=== PATIENT | female | born 1970 | race Caucasian/White ===

== ENCOUNTER 2018-08-06 18:45 | Observation (INO) ==
[2018-08-06] MEDS ORDERED: Sod Chloride 0.9% Inj 1,000 ML IV.SIG ONE (19:55)
--- NOTE | 2018-08-06 20:27 | ED ---
HPI General Chief Complaint: Chest Pain Stated Complaint: back pain Time Seen by Provider: 08/06/18 19:46 Source: patient and family Mode of arrival: ambulatory Limitations: no limitations History of Present Illness HPI narrative: 47-year-old female with history of seizure disorder, HTN, HLD, hypothyroid presents to the emergency department with multiple medical complaints. Patient states she had 2 seizures within the last 2 days. She says the last seizure occurred about 3 PM today. Admits to hitting her head. Says she has been taking her medication Keppra 500 mg twice a day as prescribed. Says she was also taking clonazepam since January as well but has been out of this medication since Thursday. Her friends describes seizures as tonic- clonic lasting several minutes for resolving spontaneously. Admits to biting her tongue. Denies urinary incontinence. She says after the seizure today she developed midsternal chest pain without radiation. Described as aching and mild in severity. She also says the left arm was "numb" after the incident and is now currently limited to her fingertips and describes it as tingling. She was diagnosed with seizure disorder in January in [place] and had a subsequent cardiac arrest where CPR was performed. She was prescribed keppra and clonazepam. Denies history of cardiac problems previously. Also concerned about abdominal pain and states this worsened today since the seizure. She says there is a knot on her lateral abdominal area and was previously diagnosed with a UTI. Says she has 'casts' that cause this pain. Described as sharp, constant, and points to the left flank. Denies fevers, chills, shortness of breath, stiff neck, rash. Related Data Home Medications Medication Instructions Recorded Confirmed aspirin 81 mg PO DAILY 08/06/18 08/06/18 clonazepam See Label Instructions .ROUTE 08/06/18 08/06/18 .COMPLEX PRN levetiracetam [Keppra] 1 tab PO BID 08/06/18 08/06/18 levothyroxine [Synthroid] 100 mcg PO DAILY 08/06/18 08/06/18 losartan 25 mg PO DAILY 08/06/18 08/06/18 metoprolol succinate 25 mg PO DAILY 08/06/18 08/06/18 Allergies Allergy/AdvReac Type Severity Reaction Status Date / Time cucumbers Allergy Difficulty Uncoded 08/06/18 19:32 Breathing pickles Allergy Difficulty Uncoded 08/06/18 19:32 Breathing Review of Systems ROS: all other systems reviewed are negative [facility] History History Provided By: Patient Social History Social History Substance History: No History of Abuse Second Hand Smoke Exposure: Yes Smoking Status: Current every day smoker Tobacco Type: Cigarettes How Often Do You Have a Drink Containing Alcohol: Never Recent Travel in [place] within the Last 8 Weeks: No Recent Out of Country Travel within the Last 8 Weeks: No Exam Narrative Exam Narrative: GENERAL: WD, WN in NAD SKIN: Focused skin assessment warm/dry. HEAD: Atraumatic. Normocephalic. EYES: Pupils equal and round. No scleral icterus. No injection or drainage. ENT: No nasal bleeding or discharge. Mucous membranes pink and moist. No tonsillar hypertrophy or exudate. NECK: Trachea midline. No JVD. No meningismus. CARDIOVASCULAR: Regular rate and rhythm. No murmur appreciated. RESPIRATORY: No accessory muscle use. Clear to auscultation. Breath sounds equal bilaterally. GASTROINTESTINAL: Abdomen soft, non-tender, nondistended. Hepatic and splenic margins not palpable. No CVAT. mild TTP to left lateral lumbar paraspinous muscles. MUSCULOSKELETAL: No obvious deformities. No clubbing. No cyanosis. No edema. No tenderness to palpation of the calves. Sensation intact to bilateral lower extremities. NEUROLOGICAL: Awake and alert. No obvious cranial nerve deficits. Motor grossly within normal limits. Normal speech. PSYCHIATRIC: Appropriate mood and affect; insight and judgment normal. Course Initial Documented Vital Signs Temperature 98.1 F 08/06/18 19:33 Pulse Rate 77 08/06/18 19:33 Respiratory Rate 18 08/06/18 19:33 Blood Pressure 172/84 H 08/06/18 19:33 Pulse Oximetry 100 08/06/18 19:33 Last Documented Vital Signs Temperature 98.6 F 08/07/18 19:50 Pulse Rate 73 08/07/18 19:50 Respiratory Rate 17 08/07/18 19:50 Blood Pressure 142/80 H 08/07/18 19:50 Pulse Oximetry 97 08/07/18 19:50 Clinical Decision Support HEART Score Questions History: Slightly suspicious EKG: Normal Age: 45-64 years Risk Factors: 3 or more Risk Factors or Hx of Atherosclerotic Disease Initial Troponin: Normal Limit Heart Score HEART Score: 3 Medical Decision Making MDM Narrative Medical decision making narrative: 47y female presents to the ED for multiple medical complaints. Her sister accompanies her in the ED today. Her sister is concerned about chest pain she has developed after her seizures today. States compliance with her medications. Ordered labs for evaluation for evaluation of chest pain, seizure disorder. CT head stable. CT abdomen pelvis noncontributory. Pt admits to a history of uterine fibroids. ASA administered. Labs are stable. troponin <0.02, UA noncontributory, UDS positive for cannabinoids, as expected based off of H&P. Ativan administered for anxiety and concern by her sister for development of another seizure. Pt states compliance with her seizure medications. Ordered keppra for level however, unavailable at this time. Pt remains stable and I believe she could follow up as an outpatient regarding further evaluation of her seizures. I believe patient would benefit from a chest pain center admission however based off of family history and H&P today. Medical Screen Exam Complete: Yes Emergency Medical Condition: Yes Medical Records Medical records reviewed: Yes I reviewed the patient's medical records. Reviewed notes that patient brought in from [place]. It appears that the left arm numbness has been present since at least March 2018 and was evaluated at that time as well. A Myocardial perfusion study was performed March 2018 which shows a 'large, mild anterior perfusion defect'. LV 76%. Lab Data Result diagrams: 08/06/18 20:10 08/06/18 20:10 Lab Results 08/06/18 08/06/18 08/06/18 Range/Units 20:10 20:10 20:45 WBC 9.0 (4.0-11.0) th/mm3 RBC 4.11 (4.00-5.30) mil/mm3 Hgb 12.9 (11.6-15.3) gm/dL Hct 38.9 (35.0-46.0) % MCV 94.6 (80.0-100.0) fL MCH 31.3 (27.0-34.0) pg MCHC 33.0 (32.0-36.0) % RDW 12.9 (11.6-17.2) % Plt Count 248 (150-450) th/mm3 MPV 9.9 (7.0-11.0) fL Neut % (Auto) 63.1 (16.0-70.0) % Lymph % (Auto) 30.0 (9.0-44.0) % Rabun % (Auto) 4.7 (0.0-8.0) % Eos % (Auto) 1.1 (0.0-4.0) % Baso % (Auto) 1.1 (0.0-2.0) % Neut # (Auto) 5.7 (1.8-7.7) th/mm3 Lymph # (Auto) 2.7 (1.0-4.8) th/mm3 Rabun # (Auto) 0.4 (0.0-0.9) th/mm3 Eos # (Auto) 0.1 (0.0-0.4) th/mm3 Baso # (Auto) 0.1 (0.0-0.2) th/mm3 WBC Differential . Differential Comment Auto diff final ESR (0-20) mm/hr Sodium 141 (136-145) meq/L Potassium 3.7 (3.5-5.1) meq/L Chloride 109 H (98-107) meq/L Carbon Dioxide 24.4 (21.0-32.0) meq/L Anion Gap 8 (5-15) meq/L BUN 9 (7-18) mg/dL Creatinine 0.71 (0.50-1.00) mg/dL Estimated GFR 87 L (>89) mL/min Random Glucose 90 (74-106) mg/dL Calcium 9.2 (8.5-10.1) mg/dL Magnesium 1.6 (1.5-2.5) mg/dL Total Bilirubin 0.2 (0.2-1.0) mg/dL AST 14 L (15-37) U/L ALT 21 (10-53) U/L Alkaline Phosphatase 54 (45-117) U/L Total Creatine Kinase (26-192) U/L Troponin I Less than 0.02 L (0.02-0.05) ng/mL Total Protein 7.3 (6.4-8.2) g/dL Albumin 3.8 (3.4-5.0) g/dL Vitamin B12 (193-986) pg/mL TSH (0.358-3.740) uIU/mL Free T4 (0.76-1.46) ng/dL Beta HCG, Qual (0-5) mIU/mL Urine Color (Yellw/Straw) Urine Clarity (Clear) Urine pH (5.0-8.5) Ur Specific Wren (1.002-1.035) Urine Protein (Neg-Trace) mg/dL Urine Glucose (UA) (Negative) mg/dL Urine Ketones (Negative) mg/dL Urine Occult Blood (Negative) Urine Nitrate (Negative) Urine Bilirubin (Negative) Urine Urobilinogen (Less than 2) mg/dL Ur Leukocyte Esterase (Negative) Ur Squamous Epith Cells (0-5) /hpf Urine Bacteria (None) /hpf Micro UA Comment Ur Microscopic Review Urine Culture Comments Urine Opiates Screen Neg (Neg) Ur Barbiturates Screen Neg (Neg) Ur Amphetamines Screen Neg (Neg) U Benzodiazepines Scrn Neg (Neg) Urine Cocaine Screen Neg (Neg) U Cannabinoids Screen Pos H (Neg) Rheumatoid Factor Scrn (Negative) Rheumatoid Factor Titer 08/06/18 08/06/18 08/07/18 Range/Units 20:45 23:15 05:30 WBC (4.0-11.0) th/mm3 RBC (4.00-5.30) mil/mm3 Hgb (11.6-15.3) gm/dL Hct (35.0-46.0) % MCV (80.0-100.0) fL MCH (27.0-34.0) pg MCHC (32.0-36.0) % RDW (11.6-17.2) % Plt Count (150-450) th/mm3 MPV (7.0-11.0) fL Neut % (Auto) (16.0-70.0) % Lymph % (Auto) (9.0-44.0) % Rabun % (Auto) (0.0-8.0) % Eos % (Auto) (0.0-4.0) % Baso % (Auto) (0.0-2.0) % Neut # (Auto) (1.8-7.7) th/mm3 Lymph # (Auto) (1.0-4.8) th/mm3 Rabun # (Auto) (0.0-0.9) th/mm3 Eos # (Auto) (0.0-0.4) th/mm3 Baso # (Auto) (0.0-0.2) th/mm3 WBC Differential Differential Comment ESR (0-20) mm/hr Sodium (136-145) meq/L Potassium (3.5-5.1) meq/L Chloride (98-107) meq/L Carbon Dioxide (21.0-32.0) meq/L Anion Gap (5-15) meq/L BUN (7-18) mg/dL Creatinine (0.50-1.00) mg/dL Estimated GFR (>89) mL/min Random Glucose (74-106) mg/dL Calcium (8.5-10.1) mg/dL Magnesium (1.5-2.5) mg/dL Total Bilirubin (0.2-1.0) mg/dL AST (15-37) U/L ALT (10-53) U/L Alkaline Phosphatase (45-117) U/L Total Creatine Kinase 59 52 (26-192) U/L Troponin I Less than 0.02 L Less than 0.02 L (0.02-0.05) ng/mL Total Protein (6.4-8.2) g/dL Albumin (3.4-5.0) g/dL Vitamin B12 (193-986) pg/mL TSH (0.358-3.740) uIU/mL Free T4 (0.76-1.46) ng/dL Beta HCG, Qual 1.6 (0-5) mIU/mL Urine Color Straw (Yellw/Straw) Urine Clarity Clear (Clear) Urine pH 6.0 (5.0-8.5) Ur Specific Wren 1.006 (1.002-1.035) Urine Protein Negative (Neg-Trace) mg/dL Urine Glucose (UA) Negative (Negative) mg/dL Urine Ketones Negative (Negative) mg/dL Urine Occult Blood Negative (Negative) Urine Nitrate Negative (Negative) Urine Bilirubin Negative (Negative) Urine Urobilinogen Less than 2 (Less than 2) mg/dL Ur Leukocyte Esterase Negative (Negative) Ur Squamous Epith Cells 2 (0-5) /hpf Urine Bacteria Rare H (None) /hpf Micro UA Comment Culture not ind Ur Microscopic Review Not Reportable Urine Culture Comments Culture not ind Urine Opiates Screen (Neg) Ur Barbiturates Screen (Neg) Ur Amphetamines Screen (Neg) U Benzodiazepines Scrn (Neg) Urine Cocaine Screen (Neg) U Cannabinoids Screen (Neg) Rheumatoid Factor Scrn (Negative) Rheumatoid Factor Titer 08/07/18 08/07/18 Range/Units 12:50 12:50 WBC (4.0-11.0) th/mm3 RBC (4.00-5.30) mil/mm3 Hgb (11.6-15.3) gm/dL Hct (35.0-46.0) % MCV (80.0-100.0) fL MCH (27.0-34.0) pg MCHC (32.0-36.0) % RDW (11.6-17.2) % Plt Count (150-450) th/mm3 MPV (7.0-11.0) fL Neut % (Auto) (16.0-70.0) % Lymph % (Auto) (9.0-44.0) % Rabun % (Auto) (0.0-8.0) % Eos % (Auto) (0.0-4.0) % Baso % (Auto) (0.0-2.0) % Neut # (Auto) (1.8-7.7) th/mm3 Lymph # (Auto) (1.0-4.8) th/mm3 Rabun # (Auto) (0.0-0.9) th/mm3 Eos # (Auto) (0.0-0.4) th/mm3 Baso # (Auto) (0.0-0.2) th/mm3 WBC Differential Differential Comment ESR 12 (0-20) mm/hr Sodium (136-145) meq/L Potassium (3.5-5.1) meq/L Chloride (98-107) meq/L Carbon Dioxide (21.0-32.0) meq/L Anion Gap (5-15) meq/L BUN (7-18) mg/dL Creatinine (0.50-1.00) mg/dL Estimated GFR (>89) mL/min Random Glucose (74-106) mg/dL Calcium (8.5-10.1) mg/dL Magnesium (1.5-2.5) mg/dL Total Bilirubin (0.2-1.0) mg/dL AST (15-37) U/L ALT (10-53) U/L Alkaline Phosphatase (45-117) U/L Total Creatine Kinase (26-192) U/L Troponin I (0.02-0.05) ng/mL Total Protein (6.4-8.2) g/dL Albumin (3.4-5.0) g/dL Vitamin B12 224 (193-986) pg/mL TSH 0.409 (0.358-3.740) uIU/mL Free T4 1.17 (0.76-1.46) ng/dL Beta HCG, Qual (0-5) mIU/mL Urine Color (Yellw/Straw) Urine Clarity (Clear) Urine pH (5.0-8.5) Ur Specific Wren (1.002-1.035) Urine Protein (Neg-Trace) mg/dL Urine Glucose (UA) (Negative) mg/dL Urine Ketones (Negative) mg/dL Urine Occult Blood (Negative) Urine Nitrate (Negative) Urine Bilirubin (Negative) Urine Urobilinogen (Less than 2) mg/dL Ur Leukocyte Esterase (Negative) Ur Squamous Epith Cells (0-5) /hpf Urine Bacteria (None) /hpf Micro UA Comment Ur Microscopic Review Urine Culture Comments Urine Opiates Screen (Neg) Ur Barbiturates Screen (Neg) Ur Amphetamines Screen (Neg) U Benzodiazepines Scrn (Neg) Urine Cocaine Screen (Neg) U Cannabinoids Screen (Neg) Rheumatoid Factor Scrn Negative (Negative) Rheumatoid Factor Titer Not Reportable Imaging Data Radiologist's impression: Chest X-Ray 08/06/18 20:08 CONCLUSION: 1. No acute cardiopulmonary disease. Head CT 08/06/18 20:08 CONCLUSION: 1. No acute intracranial abnormality. . Abdomen/Pelvis CT 08/06/18 20:12 CONCLUSION: 1. No acute CT abnormality in the abdomen or pelvis. 2. Enlarged leiomyomatous appearing uterus. 3. 5 mm subpleural right lung base nodule. Sub-6 mm nodules do not require routine follow-up in low risk patients per [address] examination may be performed at 12 months if patient is high-risk. Head MRI 08/07/18 12:28 CONCLUSION: 1. Negative MR Brain with and without contrast. Discharge Plan Discharge Disposition Patient Disposition: 30 Still Patient Discharge Condition Condition: Stable Discharge Details Diagnosis: Chest pain, Seizure disorder, Hypertension Physicians Team ED Provider: Bobby Burnette ED Midlevel Provider: Charisse Parra Primary Care Provider: Primary Care Physici,Beatriz Attending Provider: Lacie Reyes Other Providers: Wilber Hendrix ; Otoniel Murry Status ED Status: Left Department Discharge Information Discharge Date/Time: 08/06/18 23:00
[2018-08-06 20:35] LABS: Baso # (Auto) 0.1 th/mm3 (0.0-0.2); Baso % (Auto) 1.1 % (0.0-2.0); Eos # (Auto) 0.1 th/mm3 (0.0-0.4); Eos % (Auto) 1.1 % (0.0-4.0); Hematocrit 38.9 % (35.0-46.0); Hemoglobin 12.9 gm/dL (11.6-15.3); Lymph # (Auto) 2.7 th/mm3 (1.0-4.8); Mean Corpuscular Hemoglobin 31.3 pg (27.0-34.0); Mean Corpuscular Volume 94.6 fL (80.0-100.0); Mean Platelet Volume 9.9 fL (7.0-11.0); Mono # (Auto) 0.4 th/mm3 (0.0-0.9); Mono % (Auto) 4.7 % (0.0-8.0); Neut # (Auto) 5.7 th/mm3 (1.8-7.7); Neut % (Auto) 63.1 % (16.0-70.0); Platelet Count 248 th/mm3 (150-450); Red Blood Count 4.11 mil/mm3 (4.00-5.30); Red Cell Distribution Width 12.9 % (11.6-17.2)
--- NOTE | 2018-08-06 20:50 | XR ---
EXAM DATE: 08/06/2018 8:47 PM EST AGE/SEX: 47 years / Female INDICATIONS: Chest tightness and shortness of breath. CLINICAL DATA: This is the patient's initial encounter. Patient reports that signs and symptoms have been present for 1 day and indicates a pain score of 1/10. MEDICAL/SURGICAL HISTORY: Myocardial infarction. None. COMPARISON: No prior exams available for comparison. FINDINGS: A single AP view of the chest demonstrates the lungs to be symmetrically aerated without evidence of mass, infiltrate or effusion. The cardiomediastinal contours are unremarkable. Osseous structures a re intact. CONCLUSION: 1. No acute cardiopulmonary disease. Electronically signed by: Reginald Uribe MD 08/06/2018 8:49 PM EST
[2018-08-06 20:57] LABS: Albumin 3.8 g/dL (3.4-5.0); Anion Gap 8 meq/L (5-15); Aspartate Aminotransferase 14 U/L (15-37); Blood Urea Nitrogen 9 mg/dL (7-18); Calcium 9.2 mg/dL (8.5-10.1); Carbon Dioxide 24.4 meq/L (21.0-32.0); Chloride 109 meq/L (98-107); Glomerular Filtration Rate 87 mL/min (>89); Glucose,Random 90 mg/dL (74-106); Magnesium 1.6 mg/dL (1.5-2.5); Potassium 3.7 meq/L (3.5-5.1); Sodium 141 meq/L (136-145)
[2018-08-06 20:58] LABS: Alanine Aminotransferase 21 U/L (10-53)
[2018-08-06 21:02] LABS: Alkaline Phosphatase 54 U/L (45-117); Total Protein 7.3 g/dL (6.4-8.2)
--- NOTE | 2018-08-06 21:03 | CT ---
EXAM DATE: 08/06/2018 9:00 PM EST AGE/SEX: 47 years / Female INDICATIONS: Seizure. CLINICAL DATA: This is the patient's initial encounter. Patient reports that signs and symptoms have been present for 1 day and indicates a pain score of 0/10. MEDICAL/SURGICAL HISTORY: Seizures. Hypertension. Hypothyroidism. Cardiac arrest following prior seizure None. RADIATION DOSE: 55.82 CTDI (mGy) COMPARISON: No prior exams available for comparison. TECHNIQUE: CT of the head without contrast. Using automated exposure control and adjustment of the mA and/or kV according to patient size, radiation dose was kept as low as reasonably achievable to ob tain optimal diagnostic quality images. DICOM format image data is available electronically for revi ew and comparison. FINDINGS: Cerebrum: The ventricles are normal for age. No evidence of midline shift, mass lesion, hemorrhage o r acute infarction. No extraaxial fluid collections are seen. Posterior Fossa: The cerebellum and brainstem are intact. The 4th ventricle is midline. The cerebe llopontine angle is unremarkable. Extracranial: The visualized portion of the orbits is intact. Skull: The calvaria is intact. No evidence of skull fracture. CONCLUSION: 1. No acute intracranial abnormality. . Electronically signed by: Reginald Uribe MD 08/06/2018 9:02 PM EST
--- NOTE | 2018-08-06 21:06 | CT ---
EXAM DATE: 08/06/2018 8:59 PM EST AGE/SEX: 47 years / Female INDICATIONS: Left flank pain. CLINICAL DATA: This is the patient's initial encounter. Patient reports that signs and symptoms have been present for 1 day and indicates a pain score of 5/10. MEDICAL/SURGICAL HISTORY: Seizures. Hypertension. Hypothyroidism. Cardiac arrest after prior seizure None. RADIATION DOSE: 11.69 CTDI (mGy) COMPARISON: No prior exams available for comparison. TECHNIQUE: Multiple contiguous axial images were obtained through the abdomen. Images were obtained using multiple row detector helical technique. Using automated exposure control and adjustment of the mA and/or kV according to patient size, radiation dose was kept as low as reasonably achievable to o btain optimal diagnostic quality images. DICOM format image data is available electronically for rev iew and comparison. FINDINGS: LOWER LUNGS: 5 mm subpleural nodule in the right lung base. LIVER: Diffusely homogeneous density without intrahepatic ductal dilatation or volume loss. SPLEEN: Homogeneous density without enlargement. PANCREAS: Grossly unremarkable. KIDNEYS: Kidneys are symmetrical in size without evidence for radiopaque renal calculi or hydronephr osis. No significant contour deforming renal abnormality. ADRENAL GLANDS: Unremarkable. AORTA: Laura-aneurysmal. BOWEL/MESENTERY: The bowel loops are grossly unremarkable. The cecum and sigmoid colon have a salvatore l configuration. No significant free fluid or drainable fluid collections. No free air. Appendix is v isualized and normal in appearance. ABDOMINAL WALL: Intact. BLADDER: Contours are smooth. REPRODUCTIVE: Enlarged leiomyomatous appearing uterus. BONY STRUCTURES: Unremarkable. CONCLUSION: 1. No acute CT abnormality in the abdomen or pelvis. 2. Enlarged leiomyomatous appearing uterus. 3. 5 mm subpleural right lung base nodule. Sub-6 mm nodules do not require routine follow-up in low risk patients per [address] examination may be performed at 12 months if patient is high-risk. Electronically signed by: Reginald Uribe MD 08/06/2018 9:05 PM EST
[2018-08-06 21:08] LABS: Bacteria,Urine Rare /hpf; Bilirubin,Urine Negative (Negative); Clarity,Urine Clear (Clear); Color,Urine Straw (Yellw/Straw); Glucose,Urine (UA) Negative (Negative); Leukocyte Esterase,Urine Negative (Negative); Nitrite,Urine Negative (Negative); Specific Gravity,Urine 1.006 (1.002-1.035); Squamous Epithelial Cell,Urine 2 /hpf (0-5)
[2018-08-06 21:19] LABS: Amphetamine Screen,Urine Neg (Neg); Barbiturate Screen,Urine Neg (Neg); Cannabinoid Screen,Urine Pos (Neg); Cocaine Screen,Urine Neg (Neg)
[2018-08-06 21:29] LABS: Opiate Screen,Urine Neg (Neg)
[2018-08-06] MEDS ORDERED: Gadobutrol PF 10 MMOL/10 ML Vial (for RAD) IV.SIG ONE (21:33)
[2018-08-06 23:51] LABS: Creatine Kinase 59 U/L (26-192)
[2018-08-07] MEDS: Acetaminophen 500 MG Tablet PO PRN ×2 (00:22→09:57)
[2018-08-07] MEDS ORDERED: HYDROmorphone PF Inj 1 MG/ML Ampul IV.PUSH ONE (07:00)
[2018-08-07 07:06] LABS: Creatine Kinase 52 U/L (26-192)
--- NOTE | 2018-08-07 08:38 | P.HPCA ---
History of Present Illness Primary Care Physician: No Primary Care Physician Chief Complaint: Chest pain, seizure, back pain History of Present Illness: This is a 47-year-old female with history of hypertension, seizure disorder, hypothyroidism, and tobacco abuse that presents to ED with complaint of chest pain, left back pain, and seizures. States she started having seizures in [place] in January. States that she was brought in and went into cardiac arrest in the emergency department and needed CPR. She was placed on Keppra and also clonazepam at her discharge. While also at that hospitalization she was told that she needed further cardiac workup. States that she did have a stress test in March but does not know the results. However she did bring the report with her which states adenosine induced ischemia in the anterior wall with an EF of 76%.. States she has been having chest pain quite often since March. States that it is brought on with any kind of stressful situations. Not necessarily exertional stating that she really does nothing to physical as she has a bad knee. States that she began having chest pain yesterday morning. States that she had apparently had a seizure in her sleep. When she woke up from the seizure she had left-sided chest discomfort and numbness/tingling down her left arm. This is the same type of discomfort that she has been having since March. She states that she took her metoprolol that she would normally take in the morning as well as aspirin and the discomfort resolved within about 45 minutes. She was short of breath with her symptoms. States she had a seizure 2 days before as well. States she has been compliant with her seizure medication but also admits to being out of clonazepam for several days. States she has been taking clonazepam essentially every evening for a few months. Also complains of left back pain. She thought that she may be having another urinary tract infection. States that she was treated for UTI while in [place] with antibiotics. Denies fevers or chills. Denies nausea or vomiting. Denies . History of seizure disorder, hypertension, hypothyroidism, tobacco abuse, abnormal stress test in [place]. Denies diabetes, hyperlipidemia, and being diagnosed with coronary artery disease but states that she was to have further evaluation in [place]. She is here visiting family. She thinks that there are family history of CAD but really is not 100% sure. Patient has been smoking 1/2 pack of cigarettes daily for about 5 years. Prior to that she is smoking about 1/3 pack a service for 5 years. Denies alcohol. Denies illicit drug use. - Diagnosis (1) Chest pain (2) Seizure disorder (3) Hypertension (4) Abnormal stress test (5) Tobacco abuse Review of Systems General: Patient denies fevers, chills, and recent travel. HEENT: Patient denies headache, sore throat, difficulty swallowing. Cardiovascular: Has the chest discomfort as mentioned above. Denies sensation of heart beating rapidly or irregularly. No syncope. Denies diaphoresis. Respiratory: She has shortness of breath with her symptoms. Denies inspirational chest discomfort. Denies coughing wheezing or hemoptysis. GI: Patient denies nausea, vomiting, diarrhea, abdominal pain, bloody stools. Musculoskeletal: Patient denies joint pain or edema. Denies calf pain or edema. Complains of left sided back pain. Neurovascular: Complains of seizures and has had one yesterday morning and one the day before that. Denies tongue biting to me but in the ER dictation and mentioned that she had told him that she bit her tongue. She denies fecal or urinary incontinence. Planes of numbness/tingling down her left arm when she has chest pain. Patient denies weakness in extremities. Denies headache. Endocrine: Denies polyuria and polydipsia. Genitourinary: Denies hematuria or dysuria. Denies vaginal discharge. Hematologic: Denies easy bruising. Skin: Denies rash or itching. PMFSH - History History Provided By: Patient - Medical History Medical History: Medical History (Last Reviewed 08/06/18 @ 20:25 by Monserrat Patel) Cardiac arrest Hypertension Hypoglycemia Hypothyroidism Seizure - Surgical History Surgical History: Surgical History (Last Reviewed 08/06/18 @ 20:25 by Monserrat Patel) H/O removal of cyst - Tobacco History Second Hand Smoke Exposure: Yes Tobacco Use In Past 30 Days: Yes Smoking Status: Current every day smoker Tobacco Type: Cigarettes - Alcohol History How Often Do You Have a Drink Containing Alcohol: Never - Substance Use History Substance History: No History of Abuse - Travel History Recent Travel in the [place] Within the Last 8 Weeks: No Recent Travel Out of the Country Within the Last 8 Weeks: No - Immunization History Tetanus Immunization: <5 Years Medications and Allergies Active Medications: Active Medications Acetaminophen (Tylenol) 500 mg PO Q4H PRN PRN Reason: HEADACHE Last Admin: 08/07/18 00:22 Dose: 500 mg Aspirin (Aspirin) 325 mg PO DAILY [facility] Levetiracetam (Keppra) 500 mg PO BID [facility] Levothyroxine Sodium (Synthroid) 100 mcg PO DAILY [facility] Losartan Potassium (Cozaar) 25 mg PO DAILY [facility] Metoprolol Succinate (Toprol Xl) 25 mg PO DAILY [facility] Ondansetron HCl (Zofran Inj) 4 mg IV.PUSH Q6H PRN PRN Reason: NAUSEA Sodium Chloride (Ns Flush) 2 ml IV.FLUSH BID LEANDRA Sodium Chloride (Ns Flush) 2 ml IV.FLUSH PRN PRN PRN Reason: FLUSH AFTER USING IV ACCESS Allergies Allergy/AdvReac Type Severity Reaction Status Date / Time cucumbers Allergy Difficulty Uncoded 08/06/18 19:32 Breathing pickles Allergy Difficulty Uncoded 08/06/18 19:32 Breathing Home Medications Medication Instructions Recorded Confirmed Type aspirin 81 mg PO DAILY 08/06/18 08/06/18 History clonazepam See Label Instructions .ROUTE 08/06/18 08/06/18 History .COMPLEX PRN levetiracetam [Keppra] 1 tab PO BID 08/06/18 08/06/18 History levothyroxine [Synthroid] 100 mcg PO DAILY 08/06/18 08/06/18 History losartan 25 mg PO DAILY 08/06/18 08/06/18 History metoprolol succinate 25 mg PO DAILY 08/06/18 08/06/18 History Exam Vital signs: Vital Signs 08/06/18 19:33 08/06/18 19:55 08/06/18 20:00 Temperature 98.1 F Pulse Rate 77 Respiratory Rate 18 Blood Pressure 172/84 H Pulse Oximetry 100 100 98 08/06/18 22:20 08/06/18 23:13 08/07/18 01:45 Temperature 98.1 F Pulse Rate 70 74 84 Respiratory Rate 16 18 Blood Pressure 146/82 H Pulse Oximetry 100 100 08/07/18 04:00 08/07/18 04:10 Temperature 98.7 F Pulse Rate 77 78 Respiratory Rate 16 Blood Pressure 112/68 Pulse Oximetry 100 Intake & Output 08/06/18 08/07/18 08/07/18 18:59 06:59 18:59 Intake Total 1000 / 1000 Balance 1000 / 1000 Weight 88.451 kg Intake: IV 1000 / 1000 NS Inj 1,000 ML @ Wide Open IV. 1000 / 1000 SIG BOLUS ONE Rx#:[id number] Other: # Voids 0 Narrative: GENERAL: This is a well-nourished, well-developed patient, in no apparent distress. Patient speaks in clear complete sentences. Patient is pleasant. HEENT: Head is atraumatic and normocephalic. Neck is supple without lymphadenopathy and trachea is midline. No JVD or carotid bruits. CARDIOVASCULAR: Regular rate and rhythm without murmurs, gallops, or rubs. RESPIRATORY: Clear to auscultation. Breath sounds equal bilaterally. No wheezes , rales, or rhonchi. Chest wall is nontender. No use of accessory muscles. GASTROINTESTINAL: Abdomen is nontender, nondistended. Abdomen soft. No obvious pulsatile mass or bruit. No specific CVA tenderness. Strong femoral pulses bilaterally. Normal bowel sounds in all quadrants. MUSCULOSKELETAL: Pain on palpating perimuscular region of the left lumbar. No spinous process point tenderness in palpating the cervical, thoracic, or lumbar spine. Patient is moving upper and lower extremities freely. No calf tenderness or edema, no Homans sign. Strong pulses in upper and lower extremities. NEUROLOGICAL: Patient is alert and oriented. Cranial nerves 2-12 are grossly intact. No focal deficits and speech is clear. SKIN: No rash and turgor is normal. Results 08/06/18 20:10 08/06/18 20:10 Cardiac Enzymes 08/06/18 08/06/18 08/07/18 Range/Units 20:10 23:15 05:30 AST 14 L (15-37) U/L Troponin I Less than 0.02 L Less than 0.02 L Less than 0.02 L (0.02-0.05) ng/mL CBC 08/06/18 Range/Units 20:10 WBC 9.0 (4.0-11.0) th/mm3 RBC 4.11 (4.00-5.30) mil/mm3 Hgb 12.9 (11.6-15.3) gm/dL Hct 38.9 (35.0-46.0) % Plt Count 248 (150-450) th/mm3 Neut # (Auto) 5.7 (1.8-7.7) th/mm3 Lymph # (Auto) 2.7 (1.0-4.8) th/mm3 [place] # (Auto) 0.4 (0.0-0.9) th/mm3 Eos # (Auto) 0.1 (0.0-0.4) th/mm3 Baso # (Auto) 0.1 (0.0-0.2) th/mm3 Comprehensive Metabolic Panel 08/06/18 Range/Units 20:10 Sodium 141 (136-145) meq/L Potassium 3.7 (3.5-5.1) meq/L Chloride 109 H (98-107) meq/L Carbon Dioxide 24.4 (21.0-32.0) meq/L BUN 9 (7-18) mg/dL Creatinine 0.71 (0.50-1.00) mg/dL Calcium 9.2 (8.5-10.1) mg/dL AST 14 L (15-37) U/L ALT 21 (10-53) U/L Alkaline Phosphatase 54 (45-117) U/L Total Protein 7.3 (6.4-8.2) g/dL Albumin 3.8 (3.4-5.0) g/dL Intake and Output 08/06/18 08/07/18 08/07/18 22:59 06:59 14:59 Intake Total 1000 / 1000 Balance 1000 / 1000 Intake: IV 1000 / 1000 NS Inj 1,000 ML @ Wide Open IV. 1000 / 1000 SIG BOLUS ONE Rx#:[id number] Other: # Voids 0 Weight 88.451 kg - Imaging and Cardiology Imaging: Impressions Chest X-Ray 08/06/18 20:08 CONCLUSION: 1. No acute cardiopulmonary disease. Head CT 08/06/18 20:08 CONCLUSION: 1. No acute intracranial abnormality. . Abdomen/Pelvis CT 08/06/18 20:12 CONCLUSION: 1. No acute CT abnormality in the abdomen or pelvis. 2. Enlarged leiomyomatous appearing uterus. 3. 5 mm subpleural right lung base nodule. Sub-6 mm nodules do not require routine follow-up in low risk patients per [address] examination may be performed at 12 months if patient is high-risk. EKG interpretations - EKG EKG shows: bradycardia (EKGs are sinus bradycardia with inferior and lateral T wave changes.) Caprini VTE Risk Assessment Caprini VTE Risk Assessment: No/Low Risk (score <= 1) Caprini Risk Assessment Model: Point Value = 1 Point Value = 2 Point Value = 3 Point Value = 5 Age 41-60 Minor surgery BMI > 25 kg/m2 Swollen legs Varicose veins or History of unexplained or recurrent spontaneous Oral contraceptives or hormone replacement Sepsis (< 1 month) Serious lung disease, including pneumonia (< 1 month) Abnormal pulmonary function Acute myocardial infarction Congestive heart failure (< 1 month) History of inflammatory bowel disease Medical patient at bed rest Age 61-74 Arthroscopic surgery Major open surgery (> 45 min) Laparoscopic surgery (> 45 min) Malignancy Confined to bed (> 72 hours) Immobilizing plaster cast Central venous access Age >= 75 History of VTE Family history of VTE Factor V Leiden Prothrombin [id number] Lupus anticoagulant Anticardiolipin antibodies Elevated serum homocysteine Heparin-induced thrombocytopenia Other congenital or acquired thrombophilia Stroke (< 1 month) Elective arthroplasty Hip, pelvis, or leg fracture Acute spinal cord injury (< 1 month) Prophylaxis Regimen: Total Risk Factor Score Risk Level Prophylaxis Regimen 0-1 Low Early ambulation 2 Moderate Order ONE of the following: *Sequential Compression Device (SCD) *Heparin 5000 units SQ BID 3-4 Higher Order ONE of the following medications: *Heparin 5000 units SQ TID *Enoxaparin/Lovenox 40 mg SQ daily (WT < 150 kg, CrCl > 30 mL/min) *Enoxaparin/Lovenox 30 mg SQ daily (WT < 150 kg, CrCl > 10-29 mL/min) *Enoxaparin/Lovenox 30 mg SQ BID (WT < 150 kg, CrCl > 30 mL/min) AND/OR *Sequential Compression Device (SCD) 5 or more Highest Order ONE of the following medications: *Heparin 5000 units SQ TID (Preferred with Epidurals) *Enoxaparin/Lovenox 40 mg SQ daily (WT < 150 kg, CrCl > 30 mL/min) *Enoxaparin/Lovenox 30 mg SQ daily (WT < 150 kg, CrCl > 10-29 mL/min) *Enoxaparin/Lovenox 30 mg SQ BID (WT < 150 kg, CrCl > 30 mL/min) AND *Sequential Compression Device (SCD) Assessment and Plan - Assessment (1) Chest pain Code(s): R07.9 - Chest pain, unspecified Status: Acute (2) Seizure disorder Code(s): G40.909 - Epilepsy, unspecified, not intractable, without status epilepticus Status: Acute (3) Hypertension Code(s): I10 - Essential (primary) hypertension Status: Acute (4) Abnormal stress test Code(s): R94.39 - Abnormal result of other cardiovascular function study Status: Acute (5) Tobacco abuse Code(s): Z72.0 - Tobacco use Status: Acute - Plan * Chest pain: Patient has had serial cardiac enzymes and EKGs. She will be seen by Dr. Laughlin of cardiology and the chest pain center. We reviewed her records and she had an ischemic stress test in March in [place]. At this time she will be admitted to [facility] services with a consult to cardiology for further plan. Beta-hCG is pending. * Seizure disorder: Patient has been compliant with her Keppra but continues to have seizure. She is not sure if this is the result of being out of clonazepam but states she took 1 tablet may be 5 days out of the week and does not think she was taking that much. We will continue her Keppra. * Hypertension: Continue medication. * Abnormal stress test: Patient had an abnormal stress test in [place]. States she was being scheduled to have heart catheterization in [place] but has came to visit and likely states she will be moving here. Will get cardiology consult. * Tobacco abuse: Patient counseled on the importance of smoking cessation. Patient is stable at this time. She is agreeable to this plan. H&P: Quality - VTE Deep Vein Thrombosis/Pulmonary Embolism Present on Admission: No
[2018-08-07] MEDS ORDERED: Aspirin 325 MG Tablet PO SCH (09:00)
[2018-08-07] MEDS ORDERED: levETIRAcetam 500 MG Tablet PO SCH ×2 (09:00→12:27)
[2018-08-07] MEDS ORDERED: Levothyroxine 100 MCG Tablet PO SCH (09:00)
[2018-08-07] MEDS ORDERED: Morphine Sulfate Inj 2 MG/ML Vial IV.PUSH ONE (10:59)
--- NOTE | 2018-08-07 11:04 | P.PNCA ---
Subjective Interval history: Patient was presented by the physician siebel crm developer and then personally seen and examined. After full discussion and decision making was carried out on my part the patient will be admitted to the hospital for further evaluation. In essence she has a history of seizure disorder uncontrolled and of possible ischemic nuclear scan not followed up on. She will currently be admitted for further stabilization and evaluation of her seizure disorder and evaluation of reported nonischemic nuclear scan. Medications and Allergies Active Medications: Active Medications Acetaminophen (Tylenol) 500 mg PO Q4H PRN PRN Reason: HEADACHE Last Admin: 08/07/18 09:57 Dose: 500 mg Aspirin (Aspirin) 325 mg PO DAILY [facility] Last Admin: 08/07/18 09:56 Dose: 325 mg Levetiracetam (Keppra) 500 mg PO BID [facility] Last Admin: 08/07/18 09:56 Dose: 500 mg Levothyroxine Sodium (Synthroid) 100 mcg PO DAILY [facility] Last Admin: 08/07/18 09:56 Dose: 100 mcg Losartan Potassium (Cozaar) 25 mg PO DAILY [facility] Metoprolol Succinate (Toprol Xl) 25 mg PO DAILY [facility] Last Admin: 08/07/18 09:57 Dose: 25 mg Ondansetron HCl (Zofran Inj) 4 mg IV.PUSH Q6H PRN PRN Reason: NAUSEA Sodium Chloride (Ns Flush) 2 ml IV.FLUSH BID [facility] Last Admin: 08/07/18 09:58 Dose: 2 ml Sodium Chloride (Ns Flush) 2 ml IV.FLUSH PRN PRN PRN Reason: FLUSH AFTER USING IV ACCESS Allergies Allergy/AdvReac Type Severity Reaction Status Date / Time cucumbers Allergy Difficulty Uncoded 08/06/18 19:32 Breathing pickles Allergy Difficulty Uncoded 08/06/18 19:32 Breathing Home Medications Medication Instructions Recorded Confirmed Type aspirin 81 mg PO DAILY 08/06/18 08/06/18 History clonazepam See Label Instructions .ROUTE 08/06/18 08/06/18 History .COMPLEX PRN levetiracetam [Keppra] 1 tab PO BID 08/06/18 08/06/18 History levothyroxine [Synthroid] 100 mcg PO DAILY 08/06/18 08/06/18 History losartan 25 mg PO DAILY 08/06/18 08/06/18 History metoprolol succinate 25 mg PO DAILY 08/06/18 08/06/18 History Physical Exam Vital signs: Vital Signs 08/06/18 19:33 08/06/18 19:55 08/06/18 20:00 Temperature 98.1 F Pulse Rate 77 Respiratory Rate 18 Blood Pressure 172/84 H Pulse Oximetry 100 100 98 08/06/18 22:20 08/06/18 23:13 08/07/18 01:45 Temperature 98.1 F Pulse Rate 70 74 84 Respiratory Rate 16 18 Blood Pressure 146/82 H Pulse Oximetry 100 100 08/07/18 04:00 08/07/18 04:10 08/07/18 08:00 Temperature 98.7 F 98.3 F Pulse Rate 77 78 68 Respiratory Rate 16 20 Blood Pressure 112/68 139/88 Pulse Oximetry 100 97 Intake & Output 08/06/18 08/07/18 08/07/18 18:59 06:59 18:59 Intake Total 1000 / 1000 Balance 1000 / 1000 Weight 88.451 kg Intake: IV 1000 / 1000 NS Inj 1,000 ML @ Wide Open IV. 1000 / 1000 SIG BOLUS ONE Rx#:[id number] Other: # Voids 0 Narrative: Patient sitting up in bed with no apparent Current discomfort although she complains of ongoing chest Head normocephalic atraumatic Eyes PERRLA EOMI sclera clear Neck supple no JVD masses nodes or bruits Chest diminished breath sounds but clear to auscultation with no rales wheezes or rhonchi. She is exquisitely tender to palpation over the lower sternal and left chest area Cardiovascular regular sinus rhythm no gallops rubs or murmurs Abdomen soft nontender no guarding no rebound Extremities no clubbing cyanosis or edema Results 08/06/18 20:10 08/06/18 20:10 Cardiac Enzymes 08/06/18 08/06/18 08/07/18 Range/Units 20:10 23:15 05:30 AST 14 L (15-37) U/L Troponin I Less than 0.02 L Less than 0.02 L Less than 0.02 L (0.02-0.05) ng/mL CBC 08/06/18 Range/Units 20:10 WBC 9.0 (4.0-11.0) th/mm3 RBC 4.11 (4.00-5.30) mil/mm3 Hgb 12.9 (11.6-15.3) gm/dL Hct 38.9 (35.0-46.0) % Plt Count 248 (150-450) th/mm3 Neut # (Auto) 5.7 (1.8-7.7) th/mm3 Lymph # (Auto) 2.7 (1.0-4.8) th/mm3 [place] # (Auto) 0.4 (0.0-0.9) th/mm3 Eos # (Auto) 0.1 (0.0-0.4) th/mm3 Baso # (Auto) 0.1 (0.0-0.2) th/mm3 Comprehensive Metabolic Panel 08/06/18 Range/Units 20:10 Sodium 141 (136-145) meq/L Potassium 3.7 (3.5-5.1) meq/L Chloride 109 H (98-107) meq/L Carbon Dioxide 24.4 (21.0-32.0) meq/L BUN 9 (7-18) mg/dL Creatinine 0.71 (0.50-1.00) mg/dL Calcium 9.2 (8.5-10.1) mg/dL AST 14 L (15-37) U/L ALT 21 (10-53) U/L Alkaline Phosphatase 54 (45-117) U/L Total Protein 7.3 (6.4-8.2) g/dL Albumin 3.8 (3.4-5.0) g/dL Intake and Output 08/06/18 08/07/18 08/07/18 22:59 06:59 14:59 Intake Total 1000 / 1000 Balance 1000 / 1000 Intake: IV 1000 / 1000 NS Inj 1,000 ML @ Wide Open IV. 1000 / 1000 SIG BOLUS ONE Rx#:[id number] Other: # Voids 0 Weight 88.451 kg - Imaging and Cardiology Imaging: Impressions Chest X-Ray 08/06/18 20:08 CONCLUSION: 1. No acute cardiopulmonary disease. Head CT 08/06/18 20:08 CONCLUSION: 1. No acute intracranial abnormality. . Abdomen/Pelvis CT 08/06/18 20:12 CONCLUSION: 1. No acute CT abnormality in the abdomen or pelvis. 2. Enlarged leiomyomatous appearing uterus. 3. 5 mm subpleural right lung base nodule. Sub-6 mm nodules do not require routine follow-up in low risk patients per [address] examination may be performed at 12 months if patient is high-risk. Assessment and Plan - Assessment (1) Chest pain Code(s): R07.9 - Chest pain, unspecified Status: Acute Plan: Patient has reported nuclear scan from [place] showing ischemia. This is never been evaluated. Further testing at this time will be deferred until she can be appropriately admitted and evaluated. She will be admitted for recurrent seizures that are not currently well controlled. Once her neurologic status has been evaluated and stabilized further evaluation either with a repeat nuclear scan or with a catheterization will probably be strongly entertained by drywall finisher. (2) Seizure disorder Code(s): G40.909 - Epilepsy, unspecified, not intractable, without status epilepticus Status: Acute (3) Hypertension Code(s): I10 - Essential (primary) hypertension Status: Acute (4) Abnormal stress test Code(s): R94.39 - Abnormal result of other cardiovascular function study Status: Acute (5) Tobacco abuse Code(s): Z72.0 - Tobacco use Status: Acute - Plan * Chest pain: Patient has had serial cardiac enzymes and EKGs. She will be seen by Dr. Laughlin of cardiology and the chest pain center. We reviewed her records and she had an ischemic stress test in March in [place]. At this time she will be admitted to [facility] services with a consult to cardiology for further plan. Beta-hCG is pending. * Seizure disorder: Patient has been compliant with her Keppra but continues to have seizure. She is not sure if this is the result of being out of clonazepam but states she took 1 tablet may be 5 days out of the week and does not think she was taking that much. We will continue her Keppra. * Hypertension: Continue medication. * Abnormal stress test: Patient had an abnormal stress test in [place]. States she was being scheduled to have heart catheterization in [place] but has came to visit and likely states she will be moving here. Will get cardiology consult. * Tobacco abuse: Patient counseled on the importance of smoking cessation. Patient is stable at this time. She is agreeable to this plan.
--- NOTE | 2018-08-07 11:11 | ECG ---
Date Performed: 08/06/2018 Time Performed: 23:18:56 PTAGE: 47 years EKG: SINUS BRADYCARDIA NONSPECIFIC T-WAVE ABNORMALITY BORDERLINE ECG No significant change PREVIOUS TRACING : 08/06/2018 20.00 DOCTOR: Ghassan Laughlin Interpretating Date/Time 08/07/2018 11:10:12
--- NOTE | 2018-08-07 11:13 | ECG ---
Date Performed: 08/06/2018 Time Performed: 20:00:35 PTAGE: 47 years EKG: SINUS BRADYCARDIA NONSPECIFIC T-WAVE ABNORMALITY BORDERLINE ECG NO PREVIOUS TRACING DOCTOR: Ghassan Laughlin Interpretating Date/Time 08/07/2018 11:11:35
[2018-08-07] MEDS ORDERED: clonazePAM 1 MG Tablet PO SCH (12:30)
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
[2018-08-07 14:11] LABS: Free T4 (Free Thyroxine) 1.17 ng/dL (0.76-1.46); Thyroid Stimulating Hormone 0.409 uIU/mL (0.358-3.740); Vitamin B12 224 pg/mL (193-986)
--- NOTE | 2018-08-07 16:24 | MB ---
cc: Wilber Hendrix MD DATE: 08/07/2018 HISTORY OF PRESENT ILLNESS: Catia is a very pleasant 47-year-old lady who smokes, who apparently had some sort of a cardiac arrest in [place] about 6 months ago. She said she had a nuclear stress test, but did not have a heart catheterization. She has also been diagnosed with an epileptic seizure disorder. She started having some bilateral flank pain yesterday and then had a loss of consciousness and then developed moderate chest pain after that. Currently, she is sitting up in bed, in no acute distress. Denies fever, chills, cough, GI or bleeding, PND, orthopnea or dizziness. PAST MEDICAL HISTORY: Includes cardiac arrest, hypertension, hypoglycemia, hypothyroidism, seizure disorder, removal of a cyst. ALLERGIES: CUCUMBERS AND PICKLES. SOCIAL HISTORY: She does smoke. Denies alcohol use. MEDICATIONS IN THE HOSPITAL: 1. Aspirin 325 mg daily. 2. Keppra 1000 mg b.i.d. 3. Klonopin 1 mg x1. 4. Levothyroxine 100 mcg daily. 5. Losartan 25 mg daily. 6. Metoprolol XL 25 mg daily. PHYSICAL EXAMINATION: VITAL SIGNS: Temperature 98.9, pulse 58, respiratory rate 16, blood pressure 149/88, sats 97% on room air. GENERAL: She is alert and oriented x3, in no acute distress. NECK: Supple. No JVD. No bruit. CARDIOVASCULAR: S1, S2. No murmurs, rubs or gallops. LUNGS: Clear to auscultation bilaterally. ABDOMEN: Soft, nontender, nondistended with positive bowel sounds. EXTREMITIES: No lower extremity edema. DIAGNOSTIC DATA: EKG: Sinus bradycardia at 58 beats per minute, nonspecific ST-T wave changes. Repeat EKG: Sinus bradycardia at 59 beats per minute, otherwise normal. Chest x-ray: No acute cardiopulmonary disease. Head CT: The ventricles are normal for age. No evidence of midline shift, mass lesion, hemorrhage or acute infarction. No extra-axial fluid collections are seen. Abdominal pelvic CT: No acute CT abnormality in the abdomen or pelvis, large leiomyoma cyst-appearing uterus, 5 mm subpleural right lung base nodule, sub-6 mm nodules do not require routine followup in low risk patients per [address] examination may be performed at 12 months if the patient is high risk. LABORATORY DATA: White count 9.0, hemoglobin 12.9, hematocrit 38.9, platelet count 248. Sodium 141, potassium 3.7, chloride 109, bicarbonate 24.4, BUN 9, creatinine 0.71. Troponin less than 0.02 x3. Beta hCG is 1.6. Toxicology is positive for cannabinoids. DIAGNOSES: 1. Unstable angina. 2. Seizure disorder. 3. Tobacco abuse. 4. Cannabis use. 5. Positive myocardial perfusion study. 6. Hypertension. DISCUSSION: The patient has new onset [id number]-[id number]-[id number] chest pain at rest with multiple cardiac risk factors. I strongly advised her to start smoking. I agree with aspirin and metoprolol. We will also add nitro paste and Norvasc to get her blood pressure better controlled. We will get a neurology consult. If she is cleared for her catheterization, we will schedule catheterization on 08/09/2018. MD TOBY Cedeno/yayo/ciara , 01:46 PM , 01:55 PM
--- NOTE | 2018-08-07 17:07 | MR ---
EXAM DATE: 08/07/2018 5:00 PM EST AGE/SEX: 47 years / Female INDICATIONS: Seizures. CLINICAL DATA: This is the patient's initial encounter. Patient reports that signs and symptoms have been present for 1 day and indicates a pain score of 0/10. MEDICAL/SURGICAL HISTORY: Seizures. None. COMPARISON: [facility] [place]AST, 08/06/2018. . TECHNIQUE: Multiplanar, multisequence examination of the brain was performed without and with 9 ml Ga davist (gadobutrol) contrast as a single exam dose. FINDINGS: Cerebrum: The ventricles are normal for age. No evidence of midline shift, mass lesion, hemorrhage or acute infarction. No extraaxial fluid collections are seen. The pituitary gland and suprasellar cistern are normal in configuration. Hippocampi are symmetric. White Matter: No significant signal abnormalities are seen in the white matter. Posterior Fossa: The cerebellum and brainstem are intact. The 4th ventricle is midline. The cerebel lopontine angle is unremarkable. The cerebellar tonsils are normal in position. Diffusion Imaging: No focal areas of restricted diffusion are seen. No evidence of acute infarction . Extracranial: The visualized portions of the orbits and paranasal sinuses are unremarkable. Post Contrast: No abnormal areas of parenchymal or dural enhancement. No evidence of blood-brain ba rrier breakdown. CONCLUSION: 1. Negative MR Brain with and without contrast. Electronically signed by: Reginald Uribe MD 08/07/2018 5:06 PM EST
[2018-08-07] MEDS ORDERED: Gadobutrol PF 10 MMOL/10 ML Vial (for RAD) IV.SIG ONE (17:08)
[2018-08-07 19:52] VITALS: BP 142/80; PULSE 73; RESP 17; TEMP 98.6; O2SAT 97
[2018-08-07] MEDS ORDERED: Ibuprofen 400 MG Tablet PO ONE (20:04)
[2018-08-07] MEDS ORDERED: Orphenadrine Inj 60 MG/2 ML Ampul IM ONE (21:22)
[2018-08-07] MEDS ORDERED: Ketorolac Inj 30 MG/ML (IVP) Vial IV.PUSH ONE (21:23)
--- NOTE | 2018-08-07 21:46 | P.PNADD ---
Addendum to Inpatient Note Reason for Addendum: Additional Documentation Additional information: I was just notified by nursing that the patient left the facility AMA. She had been complaining that we were not managing her pain adequately earlier in the evening. She said she had been complaining to multiple providers and staff members and no one was addressing her pain problem. She requested Toradol and Norflex for left sided muscle pain - she had received this previously in [place] for the same symptom and her pain was relieved. I placed orders for a one- time dose. She left before ever receiving the medication.
[2018-08-08] MEDS ORDERED: amLODIPine 5 MG Tablet PO SCH (09:00)
--- NOTE | 2018-08-08 11:09 | MG ---
cc: Otoniel Baird MD EEG NUMBER: [id number] CLINICAL HISTORY: Seizures, nocturnal seizures. MEDICATIONS: 1. Aspirin. 2. Dilaudid. 3. Keppra. 4. Morphine. DESCRIPTION: Recording shows diffuse alpha and beta rhythms. Photic stimulation is performed without any posterior driving. Muscle artifact is seen at 10 Hz, 40 microvolts symmetric posterior rhythm is noted. Hyperventilation is not performed. It appears that she probably falls asleep, but did not reach stage II sleep. IMPRESSION: A normal awake and sleep electroencephalogram. No evidence for a focal or diffuse abnormality. MD CINDY Perez/ahmet , 10:07 AM , 10:11 AM
[2018-08-09 11:19] LABS: Anti-Nuclear Antibody Screen Neg (Neg)
== END 2018-08-07 21:41 | disposition left against medical advice (07) ==
LOC: NEPD 18:45 → NEDA 18:45 → NEPHCDU 22:52
PROVIDERS: ADMIT Hospitalist; ATTEND Hospitalist

== ENCOUNTER 2018-08-08 11:18 | Inpatient (IN) ==
--- NOTE | 2018-08-08 11:32 | ED ---
HPI General Chief Complaint: Chest Pain Stated Complaint: Chest pain Time Seen by Provider: 08/08/18 11:26 Source: patient Mode of arrival: ambulatory Limitations: no limitations History of Present Illness HPI narrative: 47 y/o female notes return of chest pain after leaving against advice from the hospital. She states when she left she had nitroglycerin paste still on so she was doing okay. The pain recurred and she took nitroglycerin tablets and it went away but when it came back she elected to come here. She states she left against advice before because she was having issues with her nursing care that was provided. She states she is willing to stay now but does not want the same nurse. She denies any other concurrent complaints. Quality is pressure. Severity is moderate. She states her abnormal stress test in March was in [place] but she could not afford at the time to get a heart catheterization. She had family help her get up here. Related Data Home Medications Medication Instructions Recorded Confirmed aspirin 81 mg PO DAILY 08/06/18 08/08/18 clonazepam See Label Instructions .ROUTE 08/06/18 08/08/18 .COMPLEX PRN levetiracetam [Keppra] 1 tab PO BID 08/06/18 08/08/18 levothyroxine [Synthroid] 100 mcg PO DAILY 08/06/18 08/08/18 losartan 25 mg PO DAILY 08/06/18 08/08/18 metoprolol succinate 25 mg PO DAILY 08/06/18 08/08/18 Allergies Allergy/AdvReac Type Severity Reaction Status Date / Time cucumbers Allergy Difficulty Uncoded 08/06/18 19:32 Breathing pickles Allergy Difficulty Uncoded 08/06/18 19:32 Breathing Review of Systems ROS: all other systems reviewed are negative [facility] Medical History Medical History Cardiac arrest (Acute) Hypertension (Acute) Hypoglycemia (Acute) Hypothyroidism (Acute) Seizure (Acute) Surgical History Surgical History H/O removal of cyst (Acute) Social History Social History Substance History: No History of Abuse Second Hand Smoke Exposure: Yes Smoking Status: Never smoker Tobacco Type: Cigarettes How Often Do You Have a Drink Containing Alcohol: Unable to Obtain Recent Travel in [facility] within the Last 8 Weeks: No Recent Out of Country Travel within the Last 8 Weeks: No Exam Narrative Exam Narrative: GENERAL: 47 y/o female in no apparent distress SKIN: Focused skin assessment warm/dry. HEAD: Atraumatic. Normocephalic. EYES: Pupils equal and round. No scleral icterus. No injection or drainage. ENT: No nasal bleeding or discharge. Mucous membranes pink and moist. NECK: Trachea midline. No JVD. CARDIOVASCULAR: Regular rate and rhythm. RESPIRATORY: No accessory muscle use. Clear to auscultation. Breath sounds equal bilaterally. GASTROINTESTINAL: Abdomen soft, non-tender, nondistended. MUSCULOSKELETAL: No obvious deformities. No clubbing. No cyanosis. No edema. NEUROLOGICAL: Awake and alert. Motor grossly within normal limits. Normal speech. PSYCHIATRIC: Appropriate mood and affect; insight and judgment normal. Course Reevaluation(s) Reevaluation #1: ED workup without emergent process. Will readmit Consultations Consultation #1: resident team agrees to admit Initial Documented Vital Signs Temperature 98.3 F 08/08/18 11:20 Pulse Rate 103 H 08/08/18 11:20 Respiratory Rate 16 08/08/18 11:20 Blood Pressure 157/93 H 08/08/18 11:20 Pulse Oximetry 99 08/08/18 11:20 Last Documented Vital Signs Temperature 98.3 F 08/08/18 11:20 Pulse Rate 75 08/08/18 12:43 Respiratory Rate 20 08/08/18 12:43 Blood Pressure 123/73 08/08/18 12:43 Pulse Oximetry 99 08/08/18 12:43 Medical Decision Making [facility] Narrative Medical decision making narrative: We will check blood work, EKG, chest x-ray and readmit Medical Screen Exam Complete: Yes Emergency Medical Condition: Yes Differential Diagnosis Differential Diagnosis: VT, gastritis, musculoskeletal Medical Records Patient here and recently signed out AMA have cardiac catheter after neurology clearance Lab Data Lab results reviewed: Yes I reviewed the patient's lab results. Result diagrams: 08/08/18 11:45 08/08/18 11:45 Lab Results 08/08/18 08/08/18 08/08/18 Range/Units 11:45 11:45 11:45 WBC 7.0 (4.0-11.0) th/mm3 RBC 3.86 L (4.00-5.30) mil/mm3 Hgb 12.3 (11.6-15.3) gm/dL Hct 36.8 (35.0-46.0) % MCV 95.2 (80.0-100.0) fL MCH 31.7 (27.0-34.0) pg MCHC 33.3 (32.0-36.0) % RDW 12.9 (11.6-17.2) % Plt Count 212 (150-450) th/mm3 MPV 9.6 (7.0-11.0) fL Neut % (Auto) 63.7 (16.0-70.0) % Lymph % (Auto) 30.6 (9.0-44.0) % [place] % (Auto) 4.9 (0.0-8.0) % Eos % (Auto) 0.4 (0.0-4.0) % Baso % (Auto) 0.4 (0.0-2.0) % Neut # (Auto) 4.4 (1.8-7.7) th/mm3 Lymph # (Auto) 2.1 (1.0-4.8) th/mm3 [place] # (Auto) 0.3 (0.0-0.9) th/mm3 Eos # (Auto) 0.0 (0.0-0.4) th/mm3 Baso # (Auto) 0.0 (0.0-0.2) th/mm3 WBC Differential . Differential Comment Auto diff final PT 10.6 (9.8-11.6) sec INR 1.0 Ratio APTT 26.2 (23.4-31.7) sec Sodium 142 (136-145) meq/L Potassium 3.5 (3.5-5.1) meq/L Chloride 111 H (98-107) meq/L Carbon Dioxide 25.7 (21.0-32.0) meq/L Anion Gap 5 (5-15) meq/L BUN 7 (7-18) mg/dL Creatinine 0.65 (0.50-1.00) mg/dL Estimated GFR Greater than 89 (>89) mL/min Random Glucose 92 (74-106) mg/dL Calcium 8.6 (8.5-10.1) mg/dL Magnesium 1.6 (1.5-2.5) mg/dL Total Bilirubin 0.5 (0.2-1.0) mg/dL AST 10 L (15-37) U/L ALT 14 (10-53) U/L Alkaline Phosphatase 47 (45-117) U/L Total Creatine Kinase 48 (26-192) U/L Troponin I Less than 0.02 L (0.02-0.05) ng/mL Total Protein 6.5 D (6.4-8.2) g/dL Albumin 3.3 L (3.4-5.0) g/dL Imaging Data Attestation: I personally reviewed and interpreted this imaging study as follows : Radiologist's impression: Chest X-Ray 08/08/18 11:28 CONCLUSION: No acute cardiopulmonary process. Discharge Plan Discharge Disposition Patient Disposition: 30 Still Patient Discharge Details Diagnosis: Chest pain Physicians Team ED Provider: Caity Man Primary Care Provider: Primary Care Beatriz Blanco Rxs /Orders / Referrals /Forms Prescriptions: No Action levetiracetam [Keppra] 500 mg Tablet 1 tab PO BID RF: 0 aspirin 81 mg Tablet,Delayed Release (Dr/Ec) 81 mg PO DAILY RF: 0 levothyroxine [Synthroid] 100 mcg Tablet 100 mcg PO DAILY RF: 0 losartan 25 mg Tablet 25 mg PO DAILY RF: 0 metoprolol succinate 25 mg Tablet Extended Release 24 Hr 25 mg PO DAILY RF: 0 clonazepam See Label Instructions .ROUTE .COMPLEX PRN (Reason: Insomnia) RF: 0 Discharge Instructions Patient Printed Instructions: Chest Pain (ED) Discharge Interventions Interventions: Vital Signs Last Done: 08/08/18 11:20 Status ED Status: Admitted Observation Patient
--- NOTE | 2018-08-08 11:53 | XR ---
EXAM DATE: 08/08/2018 11:49 AM EST AGE/SEX: 47 years / Female INDICATIONS: Chest pain CLINICAL DATA: This is the patient's initial encounter. Patient reports that signs and symptoms have been present for 1 day and indicates a pain score of 4/10. MEDICAL/SURGICAL HISTORY: None. None. COMPARISON: [facility] – [place], CHEST 1V SINGLE AP, 08/06/2018. . FINDINGS: A single AP view of the chest demonstrates the lungs to be symmetrically aerated without evidence of mass, infiltrate or effusion. The cardiomediastinal contours are unremarkable. Osseous structures a re intact. CONCLUSION: No acute cardiopulmonary process. Electronically signed by: Gerardo Escoto MD 08/08/2018 11:52 AM EST
[2018-08-08 12:10] LABS: Baso % (Auto) 0.4 % (0.0-2.0); Eos % (Auto) 0.4 % (0.0-4.0); Hematocrit 36.8 % (35.0-46.0); Hemoglobin 12.3 gm/dL (11.6-15.3); Lymph # (Auto) 2.1 th/mm3 (1.0-4.8); Lymph % (Auto) 30.6 % (9.0-44.0); Mean Corpuscular HGB Conc 33.3 % (32.0-36.0); Mean Corpuscular Hemoglobin 31.7 pg (27.0-34.0); Mean Corpuscular Volume 95.2 fL (80.0-100.0); Mean Platelet Volume 9.6 fL (7.0-11.0); Mono # (Auto) 0.3 th/mm3 (0.0-0.9); Mono % (Auto) 4.9 % (0.0-8.0); Neut # (Auto) 4.4 th/mm3 (1.8-7.7); Neut % (Auto) 63.7 % (16.0-70.0); Platelet Count 212 th/mm3 (150-450); Red Blood Count 3.86 mil/mm3 (4.00-5.30); Red Cell Distribution Width 12.9 % (11.6-17.2)
[2018-08-08 12:20] LABS: Activated Partial Thrombo Time 26.2 sec (23.4-31.7); Prothrombin Time 10.6 sec (9.8-11.6)
[2018-08-08 12:36] LABS: Alanine Aminotransferase 14 U/L (10-53); Albumin 3.3 g/dL (3.4-5.0); Anion Gap 5 meq/L (5-15); Aspartate Aminotransferase 10 U/L (15-37); Blood Urea Nitrogen 7 mg/dL (7-18); Calcium 8.6 mg/dL (8.5-10.1); Carbon Dioxide 25.7 meq/L (21.0-32.0); Chloride 111 meq/L (98-107); Glomerular Filtration Rate Greater Than 89 mL/min (>89); Glucose,Random 92 mg/dL (74-106); Magnesium 1.6 mg/dL (1.5-2.5); Potassium 3.5 meq/L (3.5-5.1); Sodium 142 meq/L (136-145)
[2018-08-08 12:40] LABS: Alkaline Phosphatase 47 U/L (45-117); Creatine Kinase 48 U/L (26-192); Total Protein 6.5 g/dL (6.4-8.2)
--- NOTE | 2018-08-08 13:28 | P.HPFP ---
History of Present Illness Primary Care Physician: No Primary Care Physician <RobinishmaelCristobal Valerio - 08/08/18 20:46> No Primary Care Physician <Luli Roberto - 08/08/18 13:28> History of Present Illness: HPI: 47 year old female presents with chest pain. Initially the chest pain started on Thursday in the morning. She had a seizure that morning (unwitnessed). She has an aura before it happens ( seeing halos). She then woke up and had chest pain located on her sternum, felt like something heavy was sitting on her chest. She had associated left arm numbness and Left jaw pain (lock jaw). The pain lasted for 45 minutes, she got up and took her metoprolol, Keppra and aspirin and then the pain went away. Throughout the day on Thursday, every time she tried to do activates such as vacuuming the pain would return, so she rested on Thursday. Her sister came in Thursday afternoon and she said she looked pale and then took her to the emergency department for the chest pain and back pain. Was evaluated on Thursday in the ED ,had a seizure in the emergency waiting room ( she believes it lasted for 15 minutes). Admitted for ACS workup. Left AMA Thursday because there was nothing on the chart to help with her chest pain and no food available. They gave her a nitroglycerin patch + lorazepam and the chest pain had subsided so she left AMA. When she woke up this morning she continued to feel the CP, same area, same radiation. Rate the pain 6/10. Non pleuritic. No recent trauma to the area. Since her seizure diagnosis she has had one seizure in [place] and four seizures since she came to [facility] on August 02. Has been taking her seizure medications daily. The only two things that she has done differently was : did not take her clonazepam (usually take it 5 times a week). She also consumed alcohol (a glass a wine) during her trip and she doesn't drink before. Not sleep deprived. Stressed that her daughter and are still in [place]. Denies any fever, Shortness of breath, No coughing, No abdominal pain. No pain with urination. Increase in Urinary frequency. She also complains of Left sided flank pain that started on the and increased on the . It radiates to her waist downward. 9/10 in severity. Morphine given by the rope maker in [place] helped. Motrin and Flexeril helped. Keeping well hydrated. Abnormal Vaginal Discharge: white and creamy that started yesterday. PMH: Seizures (1st time in January,went into Cardiac Arrest and had to be resuscitated), Kidney Infection, abnormal stress test in [place] in March. HBP. Anxiety. Uterine Fibroid. Hypoglycemia, Hypothyroidism. PSH: R elbow cyst removal as a kid. MEDs: Keppra, Metoprolol, Lopressor, Nitroglycerin. Clonazepam. Flexeril. PFH: HBP in family. Mom had diabetes. Fibroids. Dad of Liver cancer. SH: Lives in [place]. No other travel. Smokes 1/2 ppd for 5 years. Denies any alcohol use or drug use. Sexually active with . No history of STDs. Menstrual cycles regular. Abnormal vaginal discharge. Pain with sexual intercourse, some vaginal bleeding afterwards. ROS: Noted in HPI. <Luli Roberto - 08/08/18 19:01> - Diagnosis (1) Chest pain (2) Seizure disorder (3) Vaginal discharge (4) Left flank pain (5) Marijuana abuse (6) Hypertension (7) Abnormal stress test (8) Tobacco abuse (9) Tinea versicolor (10) DVT prophylaxis (11) Nutrition, metabolism, and development symptoms <Cristobal lFores - 08/08/18 20:46> (1) Chest pain (2) Seizure disorder (3) Vaginal discharge (4) Left flank pain (5) Marijuana abuse (6) Hypertension (7) Abnormal stress test (8) Tobacco abuse (9) Tinea versicolor (10) DVT prophylaxis (11) Nutrition, metabolism, and development symptoms <Luli Roberto - 08/08/18 19:04> Inpatient Certification: I certify that the inpatient services were ordered in accordance with Medicare regulations governing the order. This includes certification that hospital inpatient services are reasonable and necessary and in the case of services not specified as inpatient-only under 42 CFR 419.22(n), that they are appropriately provided as inpatient services in accordance to with the 2-midnight benchmark under 43 CFR 412.3(e) <Cristobal Flores - 08/08/18 20:46> [facility] - History History Provided By: Patient <Luli Roberto - 08/08/18 13:28> - Medical History Medical History: Medical History (Last Reviewed 08/08/18 @ 11:31 by Caity Man MD) Cardiac arrest Hypertension Hypoglycemia Hypothyroidism Seizure <Cristobal Flores - 08/08/18 20:46> Medical History (Last Reviewed 08/08/18 @ 11:31 by Caity Man MD) Cardiac arrest Hypertension Hypoglycemia Hypothyroidism Seizure <Luli Roberto - 08/08/18 13:28> - Surgical History Surgical History: Surgical History (Last Reviewed 08/08/18 @ 11:31 by Caity Man MD) H/O removal of cyst <Cristobal Flores - 08/08/18 20:46> Surgical History (Last Reviewed 08/08/18 @ 11:31 by Caity Man MD) H/O removal of cyst <NicolasasaulzullyLuli - 08/08/18 13:28> - Tobacco History Second Hand Smoke Exposure: Yes <Luli Roberto - 08/08/18 13:28> Smoking Status: Never smoker <Luli Roberto - 08/08/18 13:28> Tobacco Type: Cigarettes <Luli Roberto - 08/08/18 13:28> - Alcohol History How Often Do You Have a Drink Containing Alcohol: Unable to Obtain <Luli Roberto - 08/08/18 13:28> - Substance Use History Substance History: No History of Abuse <PardeepLuli - 08/08/18 13:28> - Travel History Recent Travel in the [facility] Within the Last 8 Weeks: No <PardeepLuli - 13:28> Recent Travel Out of the Country Within the Last 8 Weeks: No <PardeepLuli - 08/08/18 13:28> - Immunization History Tetanus Immunization: Unsure <PardeepLuli - 08/08/18 13:28> Medications and Allergies Allergies Allergy/AdvReac Type Severity Reaction Status Date / Time cucumbers Allergy Difficulty Uncoded 08/06/18 19:32 Breathing pickles Allergy Difficulty Uncoded 08/06/18 19:32 Breathing <Cristobal Flores K - 08/08/18 20:46> Home Medications Medication Instructions Recorded Confirmed Type aspirin 81 mg PO DAILY 08/06/18 08/08/18 History clonazepam See Label Instructions .ROUTE 08/06/18 08/08/18 History .COMPLEX PRN levetiracetam [Keppra] 1 tab PO BID 08/06/18 08/08/18 History levothyroxine [Synthroid] 100 mcg PO DAILY 08/06/18 08/08/18 History losartan 25 mg PO DAILY 08/06/18 08/08/18 History metoprolol succinate 25 mg PO DAILY 08/06/18 08/08/18 History <Cristobal Flores - 08/08/18 20:46> Active Medications: Active Medications Acetaminophen (Tylenol) 650 mg PO Q4H PRN PRN Reason: Temp > 100.4 Al Hydroxide/Mg Hydroxide (Milk Of Magnesia Liq) 30 ml PO Q12H PRN PRN Reason: Mild Constipation Aspirin (Ecotrin) 162 mg PO DAILY LEANDRA Bisacodyl (Dulcolax Supp) 10 mg RECTAL DAILY PRN PRN Reason: SEVERE CONSITIPATION Carvedilol (Coreg) 3.125 mg PO BID [facility] Ketoconazole (Nizoral 25 Cream) 1 applicatio TOPICAL DAILY [facility] Last Admin: 08/08/18 16:08 Dose: 1 applicatio Ketorolac Tromethamine (Toradol Inj) 15 mg IM Q6H PRN PRN Reason: PAIN 1 TO 10 Stop: 08/13/18 18:41 Lactulose (Lactulose Liq) 30 ml PO DAILY PRN PRN Reason: SEVERE CONSITIPATION Levetiracetam (Keppra) 1,000 mg PO BID [facility] Levothyroxine Sodium (Synthroid) 100 mcg PO DAILY@0600 [facility] Lorazepam (Ativan Inj) 2 mg IV.PUSH Q10M PRN PRN Reason: SEE LABEL COMMENTS Naloxone HCl (Narcan Inj) 0.4 mg IV.PUSH UNSCH PRN PRN Reason: SEE LABEL COMMENTS Nicotine (Habitrol 14 Mg Patch.24 Hr) 1 patch T-DERMAL DAILY PRN PRN Reason: tobacco use Ondansetron HCl (Zofran Inj) 4 mg IV.PUSH Q6H PRN PRN Reason: NAUSEA OR VOMITING Patch Removal (Remove Old Patch) 1 each T-DERMAL DAILY LEANDRA Senna/Docusate Sodium (Mable-Colace) 1 tab PO BID LEANDRA Sennosides (Senokot) 17.2 mg PO Q12H PRN PRN Reason: Moderate Constipation Sodium Chloride (Ns Flush) 2 ml IV.FLUSH UNSCH PRN PRN Reason: FLUSH AFTER USING IV ACCESS <Cristobal Flores - 08/08/18 20:46> Active Medications Sodium Chloride (Ns Flush) 2 ml IV.FLUSH UNSCH PRN PRN Reason: FLUSH AFTER USING IV ACCESS <Luli Roberto - 08/08/18 13:28> Exam Vital signs: Vital Signs 08/08/18 11:20 08/08/18 12:43 08/08/18 13:00 Temperature 98.3 F Pulse Rate 103 H 75 Respiratory Rate 16 20 Blood Pressure 157/93 H 123/73 Pulse Oximetry 99 99 99 08/08/18 13:59 08/08/18 16:00 Temperature 97.8 F Pulse Rate 73 81 Respiratory Rate 18 15 Blood Pressure 133/78 132/63 Pulse Oximetry 100 Intake & Output 08/08/18 08/08/18 08/09/18 06:59 18:59 06:59 Intake Total 240 / 240 Output Total 400 / 400 Balance -160 / -160 Weight 85.3 kg Intake: Oral 240 / 240 Output: Urine 400 / 400 Other: Weight On Admission 167.64 kg <SandraCristobal Valerio - 08/08/18 20:46> Vital Signs 08/08/18 11:20 08/08/18 12:43 08/08/18 13:00 Temperature 98.3 F Pulse Rate 103 H 75 Respiratory Rate 16 20 Blood Pressure 157/93 H 123/73 Pulse Oximetry 99 99 99 Intake & Output 08/07/18 08/08/18 08/08/18 18:59 06:59 18:59 Weight 89.811 kg <Luli Roberto - 08/08/18 13:28> Narrative: GENERAL: Appearing female, lying comfortably in bed, no acute distress. SKIN: Warm and dry. Multiple white circular patches appreciated in the lower and upper extremity bilaterally. HEAD: Atraumatic. Normocephalic. CARDIOVASCULAR: Regular rate and rhythm. No murmurs appreciated. 2+ peripheral pulses appreciated the upper and lower extremities bilaterally. RESPIRATORY: No accessory muscle use. Clear to auscultation. Breath sounds equal bilaterally. GASTROINTESTINAL: Abdomen soft, non-tender, nondistended. Left CVA tenderness. MUSCULOSKELETAL: Extremities without clubbing, cyanosis, or edema. No obvious deformities. NEUROLOGICAL: Awake and alert. No obvious cranial nerve deficits. Motor grossly within normal limits. PSYCHIATRIC: Appropriate mood and affect; insight and judgment normal. <Luli Roberto - 08/08/18 19:01> Results - Labs Result diagrams: 08/08/18 11:45 08/08/18 11:45 <Cristobal Flores - 08/08/18 20:46> Abnormal lab results 08/08/18 08/08/18 08/08/18 Range/Units 11:45 11:45 17:10 RBC 3.86 L (4.00-5.30) mil/mm3 Chloride 111 H (98-107) meq/L AST 10 L (15-37) U/L Troponin I Less than 0.02 L Less than 0.02 L (0.02-0.05) ng/mL Albumin 3.3 L (3.4-5.0) g/dL Short CBC 08/08/18 Range/Units 11:45 WBC 7.0 (4.0-11.0) th/mm3 Hgb 12.3 (11.6-15.3) gm/dL Hct 36.8 (35.0-46.0) % Plt Count 212 (150-450) th/mm3 BMP 08/08/18 11:45 Sodium 142 Potassium 3.5 Chloride 111 H Carbon Dioxide 25.7 BUN 7 Creatinine 0.65 Calcium 8.6 Cardiac Enzymes 08/08/18 08/08/18 Range/Units 11:45 17:10 Total Creatine Kinase 48 (26-192) U/L Troponin I Less than 0.02 L Less than 0.02 L (0.02-0.05) ng/mL Liver Function 08/08/18 Range/Units 11:45 Total Bilirubin 0.5 (0.2-1.0) mg/dL AST 10 L (15-37) U/L ALT 14 (10-53) U/L Alkaline Phosphatase 47 (45-117) U/L Albumin 3.3 L (3.4-5.0) g/dL <Cristobal Flores - 08/08/18 20:46> Abnormal lab results 08/08/18 08/08/18 Range/Units 11:45 11:45 RBC 3.86 L (4.00-5.30) mil/mm3 Chloride 111 H (98-107) meq/L AST 10 L (15-37) U/L Troponin I Less than 0.02 L (0.02-0.05) ng/mL Albumin 3.3 L (3.4-5.0) g/dL Short CBC 08/08/18 Range/Units 11:45 WBC 7.0 (4.0-11.0) th/mm3 Hgb 12.3 (11.6-15.3) gm/dL Hct 36.8 (35.0-46.0) % Plt Count 212 (150-450) th/mm3 BMP 08/08/18 11:45 Sodium 142 Potassium 3.5 Chloride 111 H Carbon Dioxide 25.7 BUN 7 Creatinine 0.65 Calcium 8.6 Cardiac Enzymes 08/08/18 Range/Units 11:45 Total Creatine Kinase 48 (26-192) U/L Troponin I Less than 0.02 L (0.02-0.05) ng/mL Liver Function 08/08/18 Range/Units 11:45 Total Bilirubin 0.5 (0.2-1.0) mg/dL AST 10 L (15-37) U/L ALT 14 (10-53) U/L Alkaline Phosphatase 47 (45-117) U/L Albumin 3.3 L (3.4-5.0) g/dL <Luli Roberto - 08/08/18 13:28> - Imaging Impressions Chest X-Ray 08/08/18 11:28 CONCLUSION: No acute cardiopulmonary process. <Cristobal Flores - 08/08/18 20:46> Impressions Chest X-Ray 08/08/18 11:28 CONCLUSION: No acute cardiopulmonary process. <Luli Roberto - 08/08/18 13:28> Caprini VTE Risk Assessment Caprini VTE Risk Assessment: No/Low Risk (score <= 1) <Luli Roberto - 19:05> Caprini Risk Assessment Model: Point Value = 1 Point Value = 2 Point Value = 3 Point Value = 5 Age 41-60 Minor surgery BMI > 25 kg/m2 Swollen legs Varicose veins or History of unexplained or recurrent spontaneous Oral contraceptives or hormone replacement Sepsis (< 1 month) Serious lung disease, including pneumonia (< 1 month) Abnormal pulmonary function Acute myocardial infarction Congestive heart failure (< 1 month) History of inflammatory bowel disease Medical patient at bed rest Age 61-74 Arthroscopic surgery Major open surgery (> 45 min) Laparoscopic surgery (> 45 min) Malignancy Confined to bed (> 72 hours) Immobilizing plaster cast Central venous access Age >= 75 History of VTE Family history of VTE Factor V Leiden Prothrombin [id number] Lupus anticoagulant Anticardiolipin antibodies Elevated serum homocysteine Heparin-induced thrombocytopenia Other congenital or acquired thrombophilia Stroke (< 1 month) Elective arthroplasty Hip, pelvis, or leg fracture Acute spinal cord injury (< 1 month) <Cristobal Flores - 08/08/18 20:46> Point Value = 1 Point Value = 2 Point Value = 3 Point Value = 5 Age 41-60 Minor surgery BMI > 25 kg/m2 Swollen legs Varicose veins or History of unexplained or recurrent spontaneous Oral contraceptives or hormone replacement Sepsis (< 1 month) Serious lung disease, including pneumonia (< 1 month) Abnormal pulmonary function Acute myocardial infarction Congestive heart failure (< 1 month) History of inflammatory bowel disease Medical patient at bed rest Age 61-74 Arthroscopic surgery Major open surgery (> 45 min) Laparoscopic surgery (> 45 min) Malignancy Confined to bed (> 72 hours) Immobilizing plaster cast Central venous access Age >= 75 History of VTE Family history of VTE Factor V Leiden Prothrombin 80860H Lupus anticoagulant Anticardiolipin antibodies Elevated serum homocysteine Heparin-induced thrombocytopenia Other congenital or acquired thrombophilia Stroke (< 1 month) Elective arthroplasty Hip, pelvis, or leg fracture Acute spinal cord injury (< 1 month) <Luli Roberto - 08/08/18 13:28> Prophylaxis Regimen: Total Risk Factor Score Risk Level Prophylaxis Regimen 0-1 Low Early ambulation 2 Moderate Order ONE of the following: *Sequential Compression Device (SCD) *Heparin 5000 units SQ BID 3-4 Higher Order ONE of the following medications: *Heparin 5000 units SQ TID *Enoxaparin/Lovenox 40 mg SQ daily (WT < 150 kg, CrCl > 30 mL/min) *Enoxaparin/Lovenox 30 mg SQ daily (WT < 150 kg, CrCl > 10-29 mL/min) *Enoxaparin/Lovenox 30 mg SQ BID (WT < 150 kg, CrCl > 30 mL/min) AND/OR *Sequential Compression Device (SCD) 5 or more Highest Order ONE of the following medications: *Heparin 5000 units SQ TID (Preferred with Epidurals) *Enoxaparin/Lovenox 40 mg SQ daily (WT < 150 kg, CrCl > 30 mL/min) *Enoxaparin/Lovenox 30 mg SQ daily (WT < 150 kg, CrCl > 10-29 mL/min) *Enoxaparin/Lovenox 30 mg SQ BID (WT < 150 kg, CrCl > 30 mL/min) AND *Sequential Compression Device (SCD) <Cristobal Flores - 08/08/18 20:46> Total Risk Factor Score Risk Level Prophylaxis Regimen 0-1 Low Early ambulation 2 Moderate Order ONE of the following: *Sequential Compression Device (SCD) *Heparin 5000 units SQ BID 3-4 Higher Order ONE of the following medications: *Heparin 5000 units SQ TID *Enoxaparin/Lovenox 40 mg SQ daily (WT < 150 kg, CrCl > 30 mL/min) *Enoxaparin/Lovenox 30 mg SQ daily (WT < 150 kg, CrCl > 10-29 mL/min) *Enoxaparin/Lovenox 30 mg SQ BID (WT < 150 kg, CrCl > 30 mL/min) AND/OR *Sequential Compression Device (SCD) 5 or more Highest Order ONE of the following medications: *Heparin 5000 units SQ TID (Preferred with Epidurals) *Enoxaparin/Lovenox 40 mg SQ daily (WT < 150 kg, CrCl > 30 mL/min) *Enoxaparin/Lovenox 30 mg SQ daily (WT < 150 kg, CrCl > 10-29 mL/min) *Enoxaparin/Lovenox 30 mg SQ BID (WT < 150 kg, CrCl > 30 mL/min) AND *Sequential Compression Device (SCD) <Luli Roberto - 08/08/18 13:28> Assessment and Plan - Assessment (1) Chest pain Code(s): R07.9 - Chest pain, unspecified Status: Acute (2) Seizure disorder Code(s): G40.909 - Epilepsy, unspecified, not intractable, without status epilepticus Status: Acute (3) Vaginal discharge Code(s): N89.8 - Other specified noninflammatory disorders of vagina Status: Acute (4) Left flank pain Code(s): R10.9 - Unspecified abdominal pain Status: Acute (5) Marijuana abuse Code(s): F12.10 - Cannabis abuse, uncomplicated Status: Acute (6) Hypertension Code(s): I10 - Essential (primary) hypertension Status: Acute (7) Abnormal stress test Code(s): R94.39 - Abnormal result of other cardiovascular function study Status: Acute (8) Tobacco abuse Code(s): Z72.0 - Tobacco use Status: Acute (9) Tinea versicolor Code(s): B36.0 - Pityriasis versicolor Status: Acute (10) DVT prophylaxis Status: Acute (11) Nutrition, metabolism, and development symptoms Code(s): R63.8 - Other symptoms and signs concerning food and fluid intake Status: Acute <SandraCristobal Iman - 08/08/18 20:46> (1) Chest pain Code(s): R07.9 - Chest pain, unspecified Status: Acute Plan: Patient presents with left-sided chest pain, with radiation down the left arm. Abnormal stress test done in [place] in March. -ACS workup. Troponin negative. Continue to trend every 6 hours. EKG shows normal sinus rhythm. -Cardiology consulted. Appreciate recommendations. -Continue aspirin 162 mg daily. -Continue carvedilol p.o. twice daily. -Continue nitroglycerin topical paste. (2) Seizure disorder Code(s): G40.909 - Epilepsy, unspecified, not intractable, without status epilepticus Status: Acute Plan: Continue with neurology's recommendations of Keppra 1000 mg twice daily. Clonazepam 1 mg every 24 hours. Seizure Precautions (3) Vaginal discharge Code(s): N89.8 - Other specified noninflammatory disorders of vagina Status: Acute Plan: Patient complains of vaginal discharge, with left flank pain that started today. DDX: UTI versus STD versus PID. UA ordered. Follow-up GC chlamydia, HIV panel ordered. If STD panel is positive will consider ordering RPR. (4) Left flank pain Code(s): R10.9 - Unspecified abdominal pain Status: Acute Plan: See plan above. (5) Marijuana abuse Code(s): F12.10 - Cannabis abuse, uncomplicated Status: Acute Plan: Patient positive for marijuana previous UDS. UDS ordered. Follow-up. (6) Hypertension Code(s): I10 - Essential (primary) hypertension Status: Acute Plan: Continue home medications. (7) Abnormal stress test Code(s): R94.39 - Abnormal result of other cardiovascular function study Status: Acute Plan: Cardiology consulted, appreciate recommendations. (8) Tobacco abuse Code(s): Z72.0 - Tobacco use Status: Acute Plan: Consider nicotine patch. (9) Tinea versicolor Code(s): B36.0 - Pityriasis versicolor Status: Acute Plan: Ketoconazole 2% cream daily to affected areas. (10) DVT prophylaxis Status: Acute Plan: SCDs only. (11) Nutrition, metabolism, and development symptoms Code(s): R63.8 - Other symptoms and signs concerning food and fluid intake Status: Acute Plan: Fluids: P.O. intake. Electrolytes: Monitor and replete as needed. Nutrition: Regular Diet <Luli Roberto - 08/08/18 19:04> - Assessment and Plan 47-year-old female presents with seizure disorder presents with left-sided chest pain and left-sided flank pain. ACS rule out. Cardiology consulted. Abnormal vaginal discharge. Workup for UTI, PID, STD. Seizure precautions, continue with home seizure medications. <Luli Roberto - 08/08/18 19:05> - Attending Attestation I was physically present for resident history and physical. The exam, history, and the medical decision-making described in the H&P from today were completed with the assistance of the resident physician. I attest that I had a [id number] encounter with the patient on the same day, and personally performed and documented my assessment and findings in the medical record. 47 yo F visiting the country from [place] for ving holidays that is here for evaluation of seizures and chest pain. she had an abnormal adenosine stress test in [place] and was just here and evaluated by cardiology, troponins were negative and Dr Laughlin and Simeon were consulted and considering heart catheterization tomorrow before she left [place] because she did not appreciate the care she was receiving. She checked back in for continued chest pain. She was also evaluated by Dr Murry neurology for her seizures and MRI brain and EEG were unrevealing. He was in the process of increasing her keppra. On exam she has no acute distress, no increased respiratory effort, some chest wall pain but not the same as her historical chest pain. She does have hypopigmented patches over her extremities on exam. Will consult cardiology to continue work up of her chest pain and see if they still want to consider cath in light of her new situation. will discuss with neurology whether they want to be re-consulted v us following previous recs on keppra and having outpatient follow up. will recommend trial of treatment for tinea versicolor. Will also get urine gc/ct for her vaginal bleeding with intercourse, discharge and pelvic pain. tobacco use- nicotine patch prn Cont home merds for: HTN, hypothyroid. <Cristobal Flores - 08/08/18 20:46> <Luli Roberto - Last Filed: 08/08/18 19:04> (6) Hypertension Qualifiers: Hypertension type: unspecified Qualified Code(s): I10 - Essential (primary) hypertension <Cristobal Flores - Last Filed: 08/08/18 20:46> (6) Hypertension Qualifiers: Hypertension type: unspecified Qualified Code(s): I10 - Essential (primary) hypertension <Luli Roberto - Last Filed: 08/08/18 19:04> (6) Hypertension Qualifiers: Hypertension type: unspecified Qualified Code(s): I10 - Essential (primary) hypertension <Cristobal Flores - Last Filed: 08/08/18 20:46> (6) Hypertension Qualifiers: Hypertension type: unspecified Qualified Code(s): I10 - Essential (primary) hypertension
[2018-08-08] MEDS ORDERED: Bisacodyl 10 MG Supp RECTAL PRN (13:53)
[2018-08-08] MEDS ORDERED: Acetaminophen 325 MG Tablet PO PRN (13:53)
[2018-08-08] MEDS ORDERED: Naloxone Inj 0.4 MG/ML Vial IV.PUSH PRN (13:53)
[2018-08-08] MEDS ORDERED: Influenza (Quadrivalent) Vaccine 0.5 ML Syringe IM ONE (16:00)
[2018-08-08] MEDS ORDERED: clonazePAM 1 MG Tablet PO SCH (17:15)
--- NOTE | 2018-08-08 17:45 | MB ---
cc: Wilber Hendrix MD DATE: 08/08/2018 HISTORY OF PRESENT ILLNESS: Catia is a very pleasant 47-year-old lady who smokes, has a seizure disorder, had a workup in [place] where she had a positive stress test, was here yesterday, and I evaluated her yesterday. Plan was for left heart catheterization; however, the patient left AMA due to not receiving the pain medicines she requested for her flank pain. Today, she presents with the same symptoms: Moderate to severe chest pain, describes as pressure-like with numbness in the left upper extremity. Currently, she is resting in bed, in no acute distress, surrounded by family. Denies fevers, chills, cough, GI or bleeding, PND, orthopnea, syncope, or dizziness. PAST MEDICAL HISTORY: Cardiac arrest, hypertension, hypoglycemia, hypothyroidism, seizure disorder, removal of cyst. SOCIAL HISTORY: She smokes. She denies alcohol use. ALLERGIES: Cucumbers and pickles. MEDICATIONS IN THE HOSPITAL: 1. Aspirin 243 x 1. 2. One-half inch nitroglycerin paste. PHYSICAL EXAMINATION: VITAL SIGNS: Pulse 75, blood pressure 133/78, respiratory rate 20, sats 99% on room air, temperature 98.3. GENERAL: She is alert and oriented x 3, in no acute distress. NECK: Supple. No JVD. No bruit. CARDIOVASCULAR: S1, S2. No murmurs, rubs or gallops. LUNGS: Clear to auscultation bilaterally. ABDOMEN: Soft, nontender, nondistended with positive bowel sounds. EXTREMITIES: Lower extremity edema. IMAGING STUDIES: Chest x-ray shows no acute cardiopulmonary process. LABORATORY DATA: EKG is not available in the computer. White count 7.0, hemoglobin 12.3, hematocrit 36.8, platelet count 212. INR is 1.0, sodium of 142, potassium 3.5, chloride 111, bicarbonate 25.7, BUN 7, creatinine 0.65. Troponin less than 0.02. DIAGNOSES: 1. Unstable angina. 2. Tobacco abuse. 3. Positive myocardial perfusion study. 4. Seizure disorder. PLAN: At this point in time, we will add aspirin 81 mg a day, Coreg 3.125 b.i.d. I have strongly advised the patient to stop smoking. Plan for left heart catheterization 08/09/2018, schedule permitting. MD TOBY Cedeno/ahmet , 03:24 PM , 03:31 PM
[2018-08-08] MEDS: Senna/Docusate Sodium 8.6/50 MG Tablet PO SCH (20:48)
[2018-08-08] MEDS: levETIRAcetam 500 MG Tablet PO SCH (20:48)
[2018-08-09] MEDS: Levothyroxine 100 MCG Tablet PO SCH (06:02)
[2018-08-09 07:43] LABS: Baso # (Auto) 0.1 th/mm3 (0.0-0.2); Baso % (Auto) 0.9 % (0.0-2.0); Eos # (Auto) 0.1 th/mm3 (0.0-0.4); Eos % (Auto) 2.2 % (0.0-4.0); Hematocrit 34.2 % (35.0-46.0); Hemoglobin 11.7 gm/dL (11.6-15.3); Lymph # (Auto) 2.2 th/mm3 (1.0-4.8); Lymph % (Auto) 35.8 % (9.0-44.0); Mean Corpuscular HGB Conc 34.2 % (32.0-36.0); Mean Corpuscular Volume 93.7 fL (80.0-100.0); Mean Platelet Volume 10.2 fL (7.0-11.0); Mono # (Auto) 0.4 th/mm3 (0.0-0.9); Mono % (Auto) 6.3 % (0.0-8.0); Neut # (Auto) 3.4 th/mm3 (1.8-7.7); Neut % (Auto) 54.8 % (16.0-70.0); Platelet Count 184 th/mm3 (150-450); Red Blood Count 3.64 mil/mm3 (4.00-5.30); Red Cell Distribution Width 12.7 % (11.6-17.2); White Blood Count 6.2 th/mm3 (4.0-11.0)
[2018-08-09 08:16] LABS: Anion Gap 9 meq/L (5-15); Aspartate Aminotransferase 11 U/L (15-37); Blood Urea Nitrogen 12 mg/dL (7-18); Calcium 8.8 mg/dL (8.5-10.1); Carbon Dioxide 22.7 meq/L (21.0-32.0); Chloride 110 meq/L (98-107); Glomerular Filtration Rate Greater Than 89 mL/min (>89); Glucose,Random 83 mg/dL (74-106); Potassium 3.3 meq/L (3.5-5.1); Sodium 142 meq/L (136-145)
[2018-08-09] MEDS: levETIRAcetam 500 MG Tablet PO SCH ×2 (08:17→20:14)
[2018-08-09] MEDS: Senna/Docusate Sodium 8.6/50 MG Tablet PO SCH ×2 (08:17→20:16)
[2018-08-09 08:18] LABS: Alanine Aminotransferase 15 U/L (10-53)
[2018-08-09 08:21] LABS: Alkaline Phosphatase 43 U/L (45-117); Total Protein 5.9 g/dL (6.4-8.2)
--- NOTE | 2018-08-09 11:57 | P.PNFP ---
Subjective Interval history: Patient seen and examined at bedside. Vital signs stable overnight. N.p.o. after midnight preparing for cardiac catheterization today. Patient says that her left flank pain has gotten better, still complaining of some vaginal discharge, describes it as white and creamy with episodes of urinary incontinence. States that this has never happened before. She also had one episode of chest pain this morning at 5:30 AM. Describes it as sharp and stabbing and something is sitting on her chest. Unable to get nitroglycerin patch which usually relieves her pain due to her upcoming cardiac cath today. She said after a couple of minutes of trying to relax the pain went away. Had 1 dose of Toradol overnight for her left flank pain, pain improved with medication. Results from lab work was relayed to patient this morning. Patient voiced understanding. All questions were answered at bedside. <Luli Roberto - 08/09/18 14:08> Results - Labs Result diagrams: 08/09/18 05:20 08/09/18 05:20 <Cristobal Flores - 08/09/18 19:41> Abnormal lab results 08/08/18 08/09/18 08/09/18 Range/Units 23:57 05:20 05:20 RBC 3.64 L (4.00-5.30) mil/mm3 Hct 34.2 L (35.0-46.0) % Potassium 3.3 L (3.5-5.1) meq/L Chloride 110 H (98-107) meq/L AST 11 L (15-37) U/L Alkaline Phosphatase 43 L (45-117) U/L Troponin I Less than 0.02 L Less than 0.02 L (0.02-0.05) ng/mL Total Protein 5.9 L D (6.4-8.2) g/dL Albumin 3.0 L (3.4-5.0) g/dL 08/09/18 Range/Units 08:25 RBC (4.00-5.30) mil/mm3 Hct (35.0-46.0) % Potassium (3.5-5.1) meq/L Chloride (98-107) meq/L AST (15-37) U/L Alkaline Phosphatase (45-117) U/L Troponin I Less than 0.02 L (0.02-0.05) ng/mL Total Protein (6.4-8.2) g/dL Albumin (3.4-5.0) g/dL Short CBC 08/09/18 Range/Units 05:20 WBC 6.2 (4.0-11.0) th/mm3 Hgb 11.7 (11.6-15.3) gm/dL Hct 34.2 L (35.0-46.0) % Plt Count 184 (150-450) th/mm3 BMP 08/09/18 05:20 Sodium 142 Potassium 3.3 L Chloride 110 H Carbon Dioxide 22.7 BUN 12 Creatinine 0.69 Calcium 8.8 Cardiac Enzymes 08/08/18 08/09/18 08/09/18 Range/Units 23:57 05:20 08:25 Troponin I Less than 0.02 L Less than 0.02 L Less than 0.02 L (0.02-0.05) ng/mL Liver Function 08/09/18 Range/Units 05:20 Total Bilirubin 0.4 (0.2-1.0) mg/dL AST 11 L (15-37) U/L ALT 15 (10-53) U/L Alkaline Phosphatase 43 L (45-117) U/L Albumin 3.0 L (3.4-5.0) g/dL <Cristobal Flores - 08/09/18 19:41> Abnormal lab results 08/08/18 08/08/18 08/08/18 Range/Units 11:45 11:45 17:10 RBC 3.86 L (4.00-5.30) mil/mm3 Hct (35.0-46.0) % Potassium (3.5-5.1) meq/L Chloride 111 H (98-107) meq/L AST 10 L (15-37) U/L Alkaline Phosphatase (45-117) U/L Troponin I Less than 0.02 L Less than 0.02 L (0.02-0.05) ng/mL Total Protein (6.4-8.2) g/dL Albumin 3.3 L (3.4-5.0) g/dL 08/08/18 08/09/18 08/09/18 Range/Units 23:57 05:20 05:20 RBC 3.64 L (4.00-5.30) mil/mm3 Hct 34.2 L (35.0-46.0) % Potassium 3.3 L (3.5-5.1) meq/L Chloride 110 H (98-107) meq/L AST 11 L (15-37) U/L Alkaline Phosphatase 43 L (45-117) U/L Troponin I Less than 0.02 L Less than 0.02 L (0.02-0.05) ng/mL Total Protein 5.9 L D (6.4-8.2) g/dL Albumin 3.0 L (3.4-5.0) g/dL 08/09/18 Range/Units 08:25 RBC (4.00-5.30) mil/mm3 Hct (35.0-46.0) % Potassium (3.5-5.1) meq/L Chloride (98-107) meq/L AST (15-37) U/L Alkaline Phosphatase (45-117) U/L Troponin I Less than 0.02 L (0.02-0.05) ng/mL Total Protein (6.4-8.2) g/dL Albumin (3.4-5.0) g/dL Short CBC 08/08/18 08/09/18 Range/Units 11:45 05:20 WBC 7.0 6.2 (4.0-11.0) th/mm3 Hgb 12.3 11.7 (11.6-15.3) gm/dL Hct 36.8 34.2 L (35.0-46.0) % Plt Count 212 184 (150-450) th/mm3 BMP 08/08/18 08/09/18 11:45 05:20 Sodium 142 142 Potassium 3.5 3.3 L Chloride 111 H 110 H Carbon Dioxide 25.7 22.7 BUN 7 12 Creatinine 0.65 0.69 Calcium 8.6 8.8 Cardiac Enzymes 08/08/18 08/08/18 08/08/18 Range/Units 11:45 17:10 23:57 Total Creatine Kinase 48 (26-192) U/L Troponin I Less than 0.02 L Less than 0.02 L Less than 0.02 L (0.02-0.05) ng/mL 08/09/18 08/09/18 Range/Units 05:20 08:25 Total Creatine Kinase (26-192) U/L Troponin I Less than 0.02 L Less than 0.02 L (0.02-0.05) ng/mL Liver Function 08/08/18 08/09/18 Range/Units 11:45 05:20 Total Bilirubin 0.5 0.4 (0.2-1.0) mg/dL AST 10 L 11 L (15-37) U/L ALT 14 15 (10-53) U/L Alkaline Phosphatase 47 43 L (45-117) U/L Albumin 3.3 L 3.0 L (3.4-5.0) g/dL <Luli Roberto - 08/09/18 11:57> Physical Exam Vital signs: Vital Signs 08/08/18 20:00 08/09/18 00:00 08/09/18 04:00 Temperature 97.5 F L 97.7 F 97.7 F Pulse Rate 92 H 70 73 Respiratory Rate 18 18 18 Blood Pressure 124/73 139/83 116/68 Pulse Oximetry 100 100 100 08/09/18 08:00 08/09/18 09:00 08/09/18 12:00 Temperature 98.1 F 98.4 F Pulse Rate 61 53 L 70 Respiratory Rate 18 18 Blood Pressure 114/56 L 119/56 L Pulse Oximetry 96 97 08/09/18 16:00 Temperature 97.3 F L Pulse Rate 63 Respiratory Rate 18 Blood Pressure 113/66 Pulse Oximetry 99 Intake & Output 08/09/18 08/09/18 08/10/18 06:59 18:59 06:59 Intake Total 480 / 480 240 / 240 Balance 480 / 480 240 / 240 Intake: Oral 480 / 480 240 / 240 Other: # Voids 3 <Cristobal Flores - 08/09/18 19:41> Vital Signs 08/08/18 12:43 08/08/18 13:00 08/08/18 13:59 Temperature Pulse Rate 75 73 Respiratory Rate 20 18 Blood Pressure 123/73 133/78 Pulse Oximetry 99 99 08/08/18 16:00 08/08/18 20:00 08/09/18 00:00 Temperature 97.8 F 97.5 F L 97.7 F Pulse Rate 81 92 H 70 Respiratory Rate 15 18 18 Blood Pressure 132/63 124/73 139/83 Pulse Oximetry 100 100 100 08/09/18 04:00 11/26/18 08:00 08/09/18 09:00 Temperature 97.7 F 98.1 F Pulse Rate 73 61 53 L Respiratory Rate 18 18 Blood Pressure 116/68 114/56 L Pulse Oximetry 100 96 Intake & Output 08/08/18 08/09/18 08/09/18 18:59 06:59 18:59 Intake Total 240 / 240 480 / 480 Output Total 400 / 400 Balance -160 / -160 480 / 480 Weight 85.3 kg Intake: Oral 240 / 240 480 / 480 Output: Urine 400 / 400 Other: # Voids 3 Weight On Admission 167.64 kg <Luli Roberto - 08/09/18 11:57> Narrative: GENERAL: Appearing female, lying comfortably in bed, no acute distress. SKIN: Warm and dry. Multiple white circular patches appreciated in the lower and upper extremity bilaterally. HEAD: Atraumatic. Normocephalic. CARDIOVASCULAR: Regular rate and rhythm. No murmurs appreciated. 2+ peripheral pulses appreciated the upper and lower extremities bilaterally. RESPIRATORY: No accessory muscle use. Clear to auscultation. Breath sounds equal bilaterally. GASTROINTESTINAL: Abdomen soft, non-tender, nondistended. Tenderness to palpation of the left suprapubic region. MUSCULOSKELETAL: Extremities without clubbing, cyanosis, or edema. No obvious deformities. NEUROLOGICAL: Awake and alert. No obvious cranial nerve deficits. Motor grossly within normal limits. PSYCHIATRIC: Appropriate mood and affect; insight and judgment normal. <Luli Roberto - 08/09/18 14:08> Assessment and Plan - Assessment (1) Chest pain Code(s): R07.9 - Chest pain, unspecified Status: Acute (2) Seizure disorder Code(s): G40.909 - Epilepsy, unspecified, not intractable, without status epilepticus Status: Acute (3) Vaginal discharge Code(s): N89.8 - Other specified noninflammatory disorders of vagina Status: Acute (4) Left flank pain Code(s): R10.9 - Unspecified abdominal pain Status: Acute (5) Marijuana abuse Code(s): F12.10 - Cannabis abuse, uncomplicated Status: Acute (6) Hypertension Code(s): I10 - Essential (primary) hypertension Status: Acute (7) Abnormal stress test Code(s): R94.39 - Abnormal result of other cardiovascular function study Status: Acute (8) Tobacco abuse Code(s): Z72.0 - Tobacco use Status: Acute (9) Tinea versicolor Code(s): B36.0 - Pityriasis versicolor Status: Acute (10) DVT prophylaxis Status: Acute (11) Nutrition, metabolism, and development symptoms Code(s): R63.8 - Other symptoms and signs concerning food and fluid intake Status: Acute <Cristobal Flores - 08/09/18 19:41> (1) Chest pain Code(s): R07.9 - Chest pain, unspecified Status: Acute Plan: Patient presents with left-sided chest pain, with radiation down the left arm. Abnormal stress test done in [place] in March. ACS workup. Troponins negative. 08/09: One episode of chest pain overnight. Relieved after couple of minutes with deep breathing and relaxation. -Cardiac catheterization today. Patient n.p.o. -On cardiac telemetry. -Continue aspirin 162 mg daily. -Continue carvedilol p.o. twice daily. -Continue nitroglycerin topical paste. -CBC stable. Follow up in AM. -Troponin negative. (2) Seizure disorder Code(s): G40.909 - Epilepsy, unspecified, not intractable, without status epilepticus Status: Acute Plan: Continue with neurology's recommendations of Keppra 1000 mg twice daily. Clonazepam 1 mg every 24 hours. Seizure Precautions (3) Vaginal discharge Code(s): N89.8 - Other specified noninflammatory disorders of vagina Status: Acute Plan: Patient complains of vaginal discharge, with left flank pain that started today. DDX: UTI versus STD versus PID. UA ordered. Follow-up GC chlamydia, HIV panel negative. BHcG ordered. Follow up. Consider pelvic exam tomorrow. (4) Left flank pain Code(s): R10.9 - Unspecified abdominal pain Status: Acute Plan: Improved with Toradol. Awaiting UA results to rule out UTI. Hold Toradol until s/p cardiac cath. (5) Marijuana abuse Code(s): F12.10 - Cannabis abuse, uncomplicated Status: Acute Plan: Patient positive for marijuana previous UDS. UDS ordered. Follow-up. (6) Hypertension Code(s): I10 - Essential (primary) hypertension Status: Acute Plan: Continue home medications. Vital Signs Stable. (7) Abnormal stress test Code(s): R94.39 - Abnormal result of other cardiovascular function study Status: Acute Plan: Cardiac Cath today. (8) Tobacco abuse Code(s): Z72.0 - Tobacco use Status: Acute Plan: Consider nicotine patch. (9) Tinea versicolor Code(s): B36.0 - Pityriasis versicolor Status: Acute Plan: Ketoconazole 2% cream daily to affected areas. (10) DVT prophylaxis Status: Acute Plan: SCDs only. (11) Nutrition, metabolism, and development symptoms Code(s): R63.8 - Other symptoms and signs concerning food and fluid intake Status: Acute Plan: Fluids: P.O. intake. Electrolytes: Monitor and replete as needed. Nutrition: NPO <Luli Roberto - 08/09/18 14:10> - Assessment and Plan 47-year-old female presents with seizure disorder presents with left-sided chest pain and left-sided flank pain. ACS rule out. Cardiology consulted. Abnormal vaginal discharge. Workup for UTI, PID, STD. Seizure precautions, continue with home seizure medications. <Luli Roberto - 08/09/18 14:08> - Attending Attestation The exam, history, and the medical decision-making described in the above note were completed with the assistance of the resident physician. I reviewed and agree with the findings presented. I attest that I had a [id number] encounter with the patient on the same day, and personally performed and documented my assessment and findings in the medical record. Had cath today showing 20% stenosis, mild, cardiology recommending medical management. For her discharge, GC/CT negative, may treat empirically for BV/Trich with flagyl. I Explained to her that this does not replace a PAP in room today. ok to discharge tomorrow if no post cath complications. <Cristobal Flores - 08/09/18 19:41> <Fam Robertoa - Last Filed: 08/09/18 14:10> (6) Hypertension Qualifiers: Hypertension type: unspecified Qualified Code(s): I10 - Essential (primary) hypertension <Cristobal Flores - Last Filed: 08/09/18 19:41> (6) Hypertension Qualifiers: Hypertension type: unspecified Qualified Code(s): I10 - Essential (primary) hypertension <PardeepLuli - Last Filed: 08/09/18 14:10> (6) Hypertension Qualifiers: Hypertension type: unspecified Qualified Code(s): I10 - Essential (primary) hypertension <Cristobal Flores - Last Filed: 08/09/18 19:41> (6) Hypertension Qualifiers: Hypertension type: unspecified Qualified Code(s): I10 - Essential (primary) hypertension
[2018-08-09] MEDS ORDERED: fentaNYL Citrate Inj 100 MCG/2 ML Ampul ONE (14:02)
--- NOTE | 2018-08-09 14:37 | CATHPROC ---
[facility] HIS Report Study Information Study Number Admission Scheduled Start Study Start [id number] Aug 08 2018 1:53PM 08/08/2018 Aug 09 2018 1:50PM [place] [facility] Cardiac Catheterization Admit Source Facility Department Other [facility] Physician and Clinical Staff Initial MD Hendrix, Wilber Cargo Bracer Brenton Phillips RN Other cathlab, cathlab Recorder Brittany Dudley,PRINCIPAL DATABASE DEVELOPER TECH2 Scrub Teri Reed,CITIZENSHIP TEACHER TECH2 Procedures Performed Procedure Location (Site) Vessel Name Coronary Angiograms LCA Left Coronary Coronary Angiograms RCA Right Coronary L Heart Cath LV Gram-hand inj. LV LV Ventricle Equipment Time Medical Transcription Radiology Description Size Mfg Part Number Used/Scraped TRANSDUCER, TRUWAVE [id number] 13:52 AGUSTIN MAR * Used W/STOCKCOCK *[id number] *[id number] *[id number] 13:52 [employer] BLANKET,WARM AIR CCL * Used *[id number] 13:52 [employer] PACK, CCL CUSTOM * Used *[id number] 13:52 [employer] PACER PEN, SKIN DUAL W/ RULER * Used *[id number] 13:52 [employer] WIRE, 3MMJ .035 180CM 180CM Used *[id number] 13:52 NAM[employer] MANIFOLD, 4 PORT * Used *[id number] 13:52 [employer] OMNIPAQUE, 350 MG, 150ML 150ML [id number] Used [id number] 13:52 [employer] SHEATH, FR4 TERUMO (10CM) FR 4 Used *[id number] History: Current Medications Medication Dosage/Unit Route Frequency Last Date/Time Taken Beta Graham Statins (any) History: Allergies Allergy Reaction cucumbers Difficulty Breathing pickles Difficulty Breathing History: Risk Factors Family History of Hypertension Dyslipidemia Previous [place] Previous Heart Failure Premature CAD Yes No Yes No No Prior Valve Prior PCI Prior CABG Surgery No No No Cerebrovascular Peripheral Artery Chronic Lung On Dialysis Diabetes Disease Disease Disease No No No No No History: Symptoms/Diagnosis Selection Items Chest pain History: Stress Tests Stress or Imaging Studies Performed No History: Other Disease Selection Items HTN History: Other Current Smoker Packs a Day Years Used Pack Years Yes 1 5 5 Labs Hgb (g/dl) Hct (%) WBC (l/cumm) Platelets (thousands) 11.60-17.00 35.00-51.00 4.00-11.00 150.00-450.00 11.7 34.2 6.2 184 Glucose (mg/dl) BUN (mg/dl) Creatinine (mg/dl) BUN:Creatinine (1:x) 74.00-106.00 7.00-18.00 0.50-1.30 10.00-20.00 8 12 0.6 20 Na (meq/l) K (meq/l) 136.00-145.00 3.50-5.10 142 3.3 INR (PTT:PT) 0.90-1.10 1 Troponin I (ng/ml) CPK (u/l) CPK-MB (ng/ML) 0.02-0.05 26.00-308.00 0.50-3.60 0.02 48 Not Drawn Medication Medication Total Dose (Bolus/Oral) Medication Total Dosage/Unit 1% XYLOCAINE 20 mL FENTANYL 50 mcg VERSED 2 mg Medications (Bolus/Oral) Medication Time Given Dosage/Unit Administered By Reason VERSED 08/09/2018 2:04:28 PM 1 mg Alan, Brenton 1 mg VERSED given in lab by Brenton Phillips RN in Left Antecubital via Peripheral IV. Ordered by Wilber Arce. FENTANYL 08/09/2018 2:05:35 PM 25 mcg Alan, Brenton 25 mcg FENTANYL given in lab by Brenton Phillips RN in Left Antecubital via Peripheral IV. Ordered by Wilber Ordoñez. 1% XYLOCAINE 08/09/2018 2:11:17 PM 20 mL Wilber Hendrix 20 mL 1% XYLOCAINE given in lab by Wilber Hendrix in Right Groin via Subcutaneous. Ordered by Wilber Nascimento. VERSED 08/09/2018 2:11:19 PM 1 mg Alan, Brenton 1 mg VERSED given in lab by Brenton Phillips RN in Left Antecubital via Peripheral IV. Ordered by Wilber Arce. FENTANYL 08/09/2018 2:12:20 PM 25 mcg Alan, Brenton 25 mcg FENTANYL given in lab by Brenton Phillips RN in Left Antecubital via Peripheral IV. Ordered by Wilber Ordoñez. Medication (Drip) Medication Time Given Dosage/Unit Concentration/Unit Diluent (ml) Solution IV Solutions 08/09/2018 1:50:28 PM 0 mL (IV) 500 NaCl .9 IV Solutions given in lab by Brenton Phillips RN in Left Antecubital via Peripheral IV. Pump/Drip Flow = 20 ml/hr using NaCl .9. Ordered by Wilber Hendrix. Initial Case Assessment Cardiovascular HR Rhythm NIBP Chest Pain 57 sbrady 117/63 0 Edema Present Skin color Skin None Normal Warm Dry Circulatory - Right Pulses Dorsalis Pedis Femoral 2 3 Scale (0,1,2,3,4,d) Circulatory - Left Pulses Dorsalis Pedis Femoral 2 3 Scale (0,1,2,3,4,d) Neurological State Oriented to time-place- Alert Moves all extremities person Respiration - General Respiration Rate SpO2 (%) (B/min) 15 99 Final Case Assessment Cardiovascular HR NIBP Chest Pain 62 123/76 0 Edema Present Skin color Skin None Normal Warm Dry Circulatory - Right Pulses Dorsalis Pedis Femoral 2 3 Scale (0,1,2,3,4,d) Circulatory - Left Pulses Dorsalis Pedis Femoral 2 3 Scale (0,1,2,3,4,d) Neurological State Oriented to time-place- Alert Moves all extremities person Respiration - General Respiration Rate SpO2 (%) (B/min) 12 100 Chronological Log Time Study Chronological Log 13:50:01 Patient arrived via Bed. 13:50:02 Patient Name, D.O.B, / Armband Verified By R.N. 13:50:02 Consent signed by the physician and the patient and verified by the [facility] staff. 13:50:09 Pre-op and post- op instructions given; patient acknowledges understanding of instructions. 13:50:10 Presedation assessment performed by [facility] RN. 13:50:11 Immediate Presedation assesment performed by physician. 13:50:11 Patient has been NPO for More than 6Hrs. 13:50:12 Skin Breakdown- none per patient 13:50:17 Patient Warmer Placed on the Table. 13:50:20 Nathan Prominences Protected 13:50:26 A # 20 IV was noted in the Antecubital (left). Grade = 0 IV Solutions given in lab by Brenton Phillips RN in Left Antecubital via Peripheral IV. Pump/Drip Flow = 20 ml/hr using 13:50:28 NaCl .9. Ordered by Wilber Hendrix. 13:50:29 History and physical on the chart or being dictated. Vitals capture started with the following parameters, Patient=Adult, Interval=5 min, Initial Pr wahqrx=691 mmHg, 13:52:02 Deflation Rate=5 mmHg, Cuff placed on Left Arm 13:52:50 HR=54 bpm, VMXS=453/63 mmhg, KdZ8=105.0 %, Resp=14 B/min, Pain=0, Shirley=10 Assessment: Initial Case, HR=57 BPM, Rhythm=sbrady, JYPM=652/63 mmhg, Chest Pain=0, Edema=None, Color=Normal, Skin = Warm, Dry Right Pulses: Ronaldo Ped=2, Femoral=3 13:52:56 Left Pulses: Ronaldo Ped=2, Femoral=3 Neurological: State=Alert, Ox3, CAUSEY Respiration: Resp=15 B/min, SpO2=99 % 13:53:15 Reference ECG taken 13:56:53 Bilateral groins prepped with 2% chlorhexidine, and draped after a 3 minute waiting time. 13:57:00 MD arrived. 13:57:03 Contrast Scanned 13:57:04 Immediate Presedation assesment performed by physician. 13:58:17 HR=52 bpm, IYUG=362/72 mmhg, CeY2=296.0 %, Resp=14 B/min, Pain=0, Shirley=10, Salas=2 14:01:09 Pressure channel 1 zeroed. 14:02:40 HR=58 bpm, VIPP=908/64 mmhg, SpO2=99.0 %, Resp=19 B/min, Pain=0, Shirley=10, Salas=2 14:04:28 1 mg VERSED given in lab by Brenton Phillips RN in Left Antecubital via Peripheral IV. Ordered by Wilber Hendrix. 14:05:35 25 mcg FENTANYL given in lab by Brenton Phillips RN in Left Antecubital via Peripheral IV. Ord ered by Wilber Hendrix. 14:07:43 HR=58 bpm, DDDZ=085/71 mmhg, SpO2=97.0 %, Resp=13 B/min, Shirley=10, Salas=2 Time Out. Correct patient, correct procedure, correct physician, labs, allergies, and equipment verified with bundle tier and labeler 14:11:14 team present. Fire risk assesment completed (see hard stop sheet for coding). Time Out Conc urred by MD and individual staff in procedure. 14:11:15 Case Start 20 mL 1% XYLOCAINE given in lab by Wilber Hendrix in Right Groin via Subcutaneous. Ordered by Simeon 14:11:17 Wilber. 14:11:19 1 mg VERSED given in lab by Brenton Phillips RN in Left Antecubital via Peripheral IV. Ordered by Wilber Hendrix. 14:12:20 25 mcg FENTANYL given in lab by Brenton Phillips RN in Left Antecubital via Peripheral IV. Ord ered by Wilber Hendrix. 14:12:46 HR=59 bpm, XRHY=522/59 mmhg, SpO2=98.0 %, Resp=10 B/min, Shirley=10, Salas=2 14:13:20 Access site was Right Femoral Artery. 14:13:22 A SHEATH, FR4 TERUMO (10CM) FR 4 was advanced into the Fem Art (right) using the Modified S eldinger technique. A JR 4.0 INFINITI CATHETER FR 4 was advanced over a wire. OMNIPAQUE, 350 MG, 150ML 150ML was us ed for 14:13:58 injections. Recorded Pressure: LV, HR=53, Condition=Condition 1 14:14:13 (Left Ventricle) LV 148/7/15 14:14:15 The LV was manually injected with 10 cc's and visualized. OMNIPAQUE, 350 MG, 150ML 150ML us ed. 14:14:47 The RCA was injected and visualized at various angles. OMNIPAQUE, 350 MG, 150ML 150ML used . 14:15:17 Catheter was removed A JL 4.0 INFINITI CATHETER FR 4 was advanced over a wire. OMNIPAQUE, 350 MG, 150ML 150ML was us ed for 14:15:18 injections. 14:15:38 The LCA was injected and visualized at various angles. OMNIPAQUE, 350 MG, 150ML 150ML used . Recorded Pressure: Ao, HR=62, Condition=Condition 1 14:15:40 (Aorta) Ao 130/69/93 14:17:45 HR=53 bpm, DQFV=043/68 mmhg, SpO2=99.0 %, Resp=15 B/min, Shirley=10, Salas=2 14:17:55 Case End (Physician broke scrub) 14:18:01 Catheter(s) removed without difficulty 14:18:03 Sheath removed; pressure applied to access site. 14:22:44 HR=70 bpm, XUYP=397/78 mmhg, SpO2=99.0 %, Resp=10 B/min, Shirley=10, Salas=2 14:27:49 HR=69 bpm, RMUX=069/70 mmhg, SpO2=99.0 %, Resp=17 B/min, Shirley=10, Salas=2 14:31:21 Sterile dressing applied to site 14:31:22 No case complications noted. 14:31:27 Cine recording checked. 14:31:30 Bedside Report will be given. 14:31:45 A Left Heart Cath was performed. 14:32:46 HR=62 bpm, UYSZ=688/76 mmhg, KjW4=171.0 %, Resp=12 B/min, Shirley=10, Salas=2 14:34:19 Vitals capture stopped. Assessment: Final Case, HR=62 BPM, FMRQ=985/76 mmhg, Chest Pain=0, Edema=None, Color=Normal, S kin = Warm, Dry Right Pulses: Ronaldo Ped=2, Femoral=3 14:34:23 Left Pulses: Ronaldo Ped=2, Femoral=3 Neurological: State=Alert, Ox3, CAUSEY Respiration: Resp=12 B/min, JtD1=357 % 14:37:13 [facility] End Study - Contrast Media Used In Study Contrast Total Opened (mL) Total Used (mL) Total Wasted (mL) Omnipaque 350 30 30 0 End Study - Maximum Contrast Load Max Contrast Load (mL) 712.1 End Study - Radiation Exposure Fluoro Time (minutes) 0.6 End Study - Patient Disposition Complications Transferred To Telemetry Bed
--- NOTE | 2018-08-09 15:23 | MA ---
cc: Wilber Hendrix MD DATE: 08/09/2018 PROCEDURE PERFORMED: Left hear catheterization, left ventriculography, coronary angiography. INDICATION: New onset pain at rest, unstable angina, [place] Cardiovascular Society Class IV angina, tobacco use, multiple cardiac risk factors. PROCEDURE: The patient was brought to the cardiac catheterization laboratory, prepped and draped in the usual sterile fashion;10 mL of 1% lidocaine was used for locally anesthetize the right common femoral artery; a 4-Togolese sheath placed in right common femoral artery; 4-Togolese JR4 and JL4 catheters were used to perform left and right coronary angiography and left ventriculography. FINDINGS: LV pressure is 145/7-8, EF is 60%. Right coronary artery is nondominant with no significant disease angiographically. Left main coronary artery has no significant disease angiographically. Left circumflex vessel is a large dominant vessel, no significant disease angiographically. First obtuse marginal vessel is a large vessel, reference vessel diameter of 3.25 mm. Mild disease in mid AV groove, 20% angiographically at the most. The AV groove vessel gives off a small to medium size left posterior descending coronary artery 1.5 mm in diameter. No significant obstructive disease. LAD is transapical; has no significant disease angiographically. First diagonal artery is a medium sized vessel of 2.7 mm reference vessel diameter. CONCLUSION: 1. Angiographically mild one-vessel coronary artery disease in the left dominant system. 2. Normal left ventricular systolic function with ejection fraction 60%. RECOMMENDATIONS: 1. Recommend evaluation of noncardiac chest pain. 2. Recommend medical management of coronary artery disease. 3. I strongly advised the patient to stop smoking, she understands. Wilber Hendrix MD AWC/sasha , 02:21 PM , 02:29 PM
[2018-08-09] MEDS ORDERED: Iohexol 350 MG/ML 50 ML Vial (for Cath Lab) IVCONTRAST ONE (16:47)
[2018-08-09] MEDS ORDERED: clonazePAM 1 MG Tablet PO ONE (22:08)
[2018-08-10] MEDS: Levothyroxine 100 MCG Tablet PO SCH (06:08)
--- NOTE | 2018-08-10 06:59 | ECG ---
Date Performed: 08/08/2018 Time Performed: 11:35:05 PTAGE: 47 years EKG: Sinus rhythm WITH SHORT MN INTERVAL MODERATE VOLTAGE CRITERIA FOR LVH, CONSIDER NORMAL VARIANT NONSPECIFIC T-WAVE ABNORMALITY BORDERLINE ECG PREVIOUS TRACING : 08/06/2018 23.18 Since the previous tracing, no significant change noted DOCTOR: Ryder Thompson Interpretating Date/Time 08/10/2018 06:55:26
[2018-08-10 07:22] LABS: Baso % (Auto) 0.6 % (0.0-2.0); Eos # (Auto) 0.2 th/mm3 (0.0-0.4); Eos % (Auto) 2.7 % (0.0-4.0); Hematocrit 33.5 % (35.0-46.0); Hemoglobin 11.3 gm/dL (11.6-15.3); Lymph # (Auto) 2.6 th/mm3 (1.0-4.8); Lymph % (Auto) 44.8 % (9.0-44.0); Mean Corpuscular HGB Conc 33.6 % (32.0-36.0); Mean Corpuscular Hemoglobin 32.2 pg (27.0-34.0); Mean Corpuscular Volume 95.7 fL (80.0-100.0); Mean Platelet Volume 10.3 fL (7.0-11.0); Mono # (Auto) 0.4 th/mm3 (0.0-0.9); Mono % (Auto) 6.8 % (0.0-8.0); Neut # (Auto) 2.6 th/mm3 (1.8-7.7); Neut % (Auto) 45.1 % (16.0-70.0); Platelet Count 182 th/mm3 (150-450); Red Cell Distribution Width 12.7 % (11.6-17.2); White Blood Count 5.8 th/mm3 (4.0-11.0)
[2018-08-10 07:40] LABS: Albumin 2.8 g/dL (3.4-5.0); Anion Gap 7 meq/L (5-15); Aspartate Aminotransferase 9 U/L (15-37); Blood Urea Nitrogen 11 mg/dL (7-18); Calcium 8.4 mg/dL (8.5-10.1); Carbon Dioxide 25.4 meq/L (21.0-32.0); Chloride 109 meq/L (98-107); Glomerular Filtration Rate Greater Than 89 mL/min (>89); Glucose,Random 82 mg/dL (74-106); Potassium 3.5 meq/L (3.5-5.1); Sodium 141 meq/L (136-145)
[2018-08-10 07:43] LABS: Alanine Aminotransferase 13 U/L (10-53); Alkaline Phosphatase 40 U/L (45-117); Total Protein 5.6 g/dL (6.4-8.2)
[2018-08-10] MEDS ORDERED: metroNIDAZOLE 500 MG Tablet PO ONE (09:00)
[2018-08-10 09:16] VITALS: BP 101/71; RESP 16; TEMP 97.8; O2SAT 99
[2018-08-10] MEDS: levETIRAcetam 500 MG Tablet PO SCH (09:22)
[2018-08-10] MEDS: Senna/Docusate Sodium 8.6/50 MG Tablet PO SCH (09:22)
[2018-08-10 10:08] VITALS: PULSE 64
[2018-08-10] MEDS ORDERED: Ketorolac 10 MG Tablet PO ONE (10:26)
--- NOTE | 2018-08-10 10:37 | P.PNFP ---
Subjective Interval history: Patient seen and examined this morning at bedside. Status post cardiac cath yesterday. Catheterization revealed normal systolic function. Ejection fraction of 60%. Results relayed to patient. Discussed medical management of coronary artery disease. Educated patient on smoking cessation, patient has asked for Chantix prescription to help. Patient still complains of left-sided flank pain. It is intermittent. Educated on following up with primary care as an outpatient for left-sided flank pain. She confirms of some chest pain this morning but it has resolved. She denies any shortness of breath, abdominal pain, problems with urination or defecation. Patient is ready to be discharged today. All questions answered at bedside. <Luli Roberto - 08/10/18 10:37> Results - Labs Result diagrams: 08/10/18 04:30 08/10/18 04:30 <Cristobal Flores - 08/10/18 13:00> Abnormal lab results 08/10/18 08/10/18 Range/Units 04:30 04:30 RBC 3.50 L (4.00-5.30) mil/mm3 Hgb 11.3 L (11.6-15.3) gm/dL Hct 33.5 L (35.0-46.0) % Lymph % (Auto) 44.8 H (9.0-44.0) % Chloride 109 H (98-107) meq/L Calcium 8.4 L (8.5-10.1) mg/dL AST 9 L (15-37) U/L Alkaline Phosphatase 40 L (45-117) U/L Total Protein 5.6 L (6.4-8.2) g/dL Albumin 2.8 L (3.4-5.0) g/dL Short CBC 08/10/18 Range/Units 04:30 WBC 5.8 (4.0-11.0) th/mm3 Hgb 11.3 L (11.6-15.3) gm/dL Hct 33.5 L (35.0-46.0) % Plt Count 182 (150-450) th/mm3 BMP 08/10/18 04:30 Sodium 141 Potassium 3.5 Chloride 109 H Carbon Dioxide 25.4 BUN 11 Creatinine 0.65 Calcium 8.4 L Liver Function 08/10/18 Range/Units 04:30 Total Bilirubin 0.3 (0.2-1.0) mg/dL AST 9 L (15-37) U/L ALT 13 (10-53) U/L Alkaline Phosphatase 40 L (45-117) U/L Albumin 2.8 L (3.4-5.0) g/dL <Cristobal Flores - 08/10/18 13:00> Abnormal lab results 08/10/18 08/10/18 Range/Units 04:30 04:30 RBC 3.50 L (4.00-5.30) mil/mm3 Hgb 11.3 L (11.6-15.3) gm/dL Hct 33.5 L (35.0-46.0) % Lymph % (Auto) 44.8 H (9.0-44.0) % Chloride 109 H (98-107) meq/L Calcium 8.4 L (8.5-10.1) mg/dL AST 9 L (15-37) U/L Alkaline Phosphatase 40 L (45-117) U/L Total Protein 5.6 L (6.4-8.2) g/dL Albumin 2.8 L (3.4-5.0) g/dL Short CBC 08/10/18 Range/Units 04:30 WBC 5.8 (4.0-11.0) th/mm3 Hgb 11.3 L (11.6-15.3) gm/dL Hct 33.5 L (35.0-46.0) % Plt Count 182 (150-450) th/mm3 BMP 08/10/18 04:30 Sodium 141 Potassium 3.5 Chloride 109 H Carbon Dioxide 25.4 BUN 11 Creatinine 0.65 Calcium 8.4 L Liver Function 08/10/18 Range/Units 04:30 Total Bilirubin 0.3 (0.2-1.0) mg/dL AST 9 L (15-37) U/L ALT 13 (10-53) U/L Alkaline Phosphatase 40 L (45-117) U/L Albumin 2.8 L (3.4-5.0) g/dL <Luli Roberto - 08/10/18 10:37> Physical Exam Vital signs: Vital Signs 08/09/18 16:00 08/09/18 19:38 08/09/18 20:00 Temperature 97.3 F L 98 F Pulse Rate 63 68 78 Respiratory Rate 18 18 Blood Pressure 113/66 140/80 Pulse Oximetry 99 97 08/09/18 21:41 08/10/18 00:00 08/10/18 04:00 Temperature 97.4 F L 97.7 F Pulse Rate 71 88 Respiratory Rate 9 L 18 18 Blood Pressure 132/68 114/69 Pulse Oximetry 97 95 08/10/18 08:00 08/10/18 09:00 Temperature 97.8 F Pulse Rate 66 64 Respiratory Rate 16 Blood Pressure 101/71 Pulse Oximetry 99 Intake & Output 08/09/18 08/10/18 08/10/18 18:59 06:59 18:59 Intake Total 240 / 240 Balance 240 / 240 Weight 87.7 kg Intake: Oral 240 / 240 Other: # Voids 2 <Cristobal Flores - 08/10/18 13:00> Vital Signs 08/09/18 12:00 08/09/18 16:00 08/09/18 19:38 Temperature 98.4 F 97.3 F L Pulse Rate 70 63 68 Respiratory Rate 18 18 Blood Pressure 119/56 L 113/66 Pulse Oximetry 97 99 08/09/18 20:00 08/09/18 21:41 08/10/18 00:00 Temperature 98 F 97.4 F L Pulse Rate 78 71 Respiratory Rate 18 9 L 18 Blood Pressure 140/80 132/68 Pulse Oximetry 97 97 08/10/18 04:00 08/10/18 08:00 08/10/18 09:00 Temperature 97.7 F 97.8 F Pulse Rate 88 66 64 Respiratory Rate 18 16 Blood Pressure 114/69 101/71 Pulse Oximetry 95 99 Intake & Output 08/09/18 08/10/18 08/10/18 18:59 06:59 18:59 Intake Total 240 / 240 Balance 240 / 240 Weight 87.7 kg Intake: Oral 240 / 240 Other: # Voids 2 <Luli Roberto - 08/10/18 10:37> Narrative: GENERAL: Appearing female, lying comfortably in bed, no acute distress. SKIN: Warm and dry. Multiple white circular patches appreciated in the lower and upper extremity bilaterally. HEAD: Atraumatic. Normocephalic. CARDIOVASCULAR: Regular rate and rhythm. No murmurs appreciated. 2+ peripheral pulses appreciated the upper and lower extremities bilaterally. RESPIRATORY: No accessory muscle use. Clear to auscultation. Breath sounds equal bilaterally. GASTROINTESTINAL: Abdomen soft, non-tender, nondistended. Tenderness to palpation of the left suprapubic region. MUSCULOSKELETAL: Extremities without clubbing, cyanosis, or edema. No obvious deformities. NEUROLOGICAL: Awake and alert. No obvious cranial nerve deficits. Motor grossly within normal limits. PSYCHIATRIC: Appropriate mood and affect; insight and judgment normal. <NicolasajojoLuli - 08/10/18 10:37> Assessment and Plan - Assessment (1) Chest pain Code(s): R07.9 - Chest pain, unspecified Status: Acute (2) Seizure disorder Code(s): G40.909 - Epilepsy, unspecified, not intractable, without status epilepticus Status: Acute (3) Vaginal discharge Code(s): N89.8 - Other specified noninflammatory disorders of vagina Status: Acute (4) Left flank pain Code(s): R10.9 - Unspecified abdominal pain Status: Acute (5) Marijuana abuse Code(s): F12.10 - Cannabis abuse, uncomplicated Status: Acute (6) Hypertension Code(s): I10 - Essential (primary) hypertension Status: Acute (7) Abnormal stress test Code(s): R94.39 - Abnormal result of other cardiovascular function study Status: Acute (8) Tobacco abuse Code(s): Z72.0 - Tobacco use Status: Acute (9) Tinea versicolor Code(s): B36.0 - Pityriasis versicolor Status: Acute (10) DVT prophylaxis Status: Acute (11) Nutrition, metabolism, and development symptoms Code(s): R63.8 - Other symptoms and signs concerning food and fluid intake Status: Acute <Cristobal Flores Iman - 08/10/18 13:00> (1) Chest pain Code(s): R07.9 - Chest pain, unspecified Status: Acute Plan: Patient presents with left-sided chest pain, with radiation down the left arm. Abnormal stress test done in [place] in March. ACS workup. Troponins negative. 08/10: Day 1 status post cardiac catheterization. Normal systolic function. Ejection fraction 60%. Cardiology recommends management of CAD. 08/09: One episode of chest pain overnight. Relieved after couple of minutes with deep breathing and relaxation. -Continue aspirin 162 mg p.o. -Start atorvastatin 20 mg -Chantix ordered for smoking cessation. -Patient counseled on smoking cessation. -Follow-up with PCP in [place]. -DC home today (2) Seizure disorder Code(s): G40.909 - Epilepsy, unspecified, not intractable, without status epilepticus Status: Acute Plan: Continue with neurology's recommendations of Keppra 1000 mg twice daily. Clonazepam 1 mg every 24 hours. Seizure Precautions (3) Vaginal discharge Code(s): N89.8 - Other specified noninflammatory disorders of vagina Status: Acute Plan: Patient complains of vaginal discharge, with left flank pain that started yesterday. 1 g metronidazole given due to possible BV or Trichomonas. GC chlamydia, HIV panel negative. Patient advised to follow-up with primary care in regards to pelvic exam and Pap smear. (4) Left flank pain Code(s): R10.9 - Unspecified abdominal pain Status: Acute Plan: Improved with Toradol. (5) Marijuana abuse Code(s): F12.10 - Cannabis abuse, uncomplicated Status: Acute Plan: Patient positive for marijuana previous UDS. (6) Hypertension Code(s): I10 - Essential (primary) hypertension Status: Acute Plan: Will be discharged on Coreg 3.125 mg twice daily. will discontinue metoprolol 25 mg. Vital Signs Stable. (7) Abnormal stress test Code(s): R94.39 - Abnormal result of other cardiovascular function study Status: Acute Plan: Cardiac Cath within normal limits. (8) Tobacco abuse Code(s): Z72.0 - Tobacco use Status: Acute Plan: Consider nicotine patch. (9) Tinea versicolor Code(s): B36.0 - Pityriasis versicolor Status: Acute Plan: Ketoconazole 2% cream daily to affected areas. (10) DVT prophylaxis Status: Acute Plan: SCDs only. (11) Nutrition, metabolism, and development symptoms Code(s): R63.8 - Other symptoms and signs concerning food and fluid intake Status: Acute Plan: Fluids: P.O. intake. Electrolytes: Monitor and replete as needed. Nutrition: Regular diet <Luli Roberto - 08/10/18 10:38> - Assessment and Plan 47-year-old female presents with seizure disorder presents with left-sided chest pain and left-sided flank pain. ACS rule out. Cardiology consulted. Abnormal vaginal discharge. Workup for UTI, PID, STD. Seizure precautions, continue with home seizure medications. <Luli Roberto - 08/10/18 10:37> Discussed Condition With: Dr. Tay and Dr. Flores. <Luli Roberto - 08/10/18 10:37> Discharge Planning: Stable. DC to home today. <Luli Roberto - 08/10/18 10:37> - Attending Attestation The exam, history, and the medical decision-making described in the above note were completed with the assistance of the resident physician. I reviewed and agree with the findings presented. I attest that I had a [id number] encounter with the patient on the same day, and personally performed and documented my assessment and findings in the medical record. Chest pain better today, very mild CAD on cath, medically managing. starting statin here and coreg low dose and can be titrated as outpatient. Treating with 2g of flagyl empirically as she has discharge and post coital bleeding and negative for GC/CT. Advised needs outpatient PAP smear. Discharging on keppra and clonazepam based on neurologys initial recommendations. <Cristobal Flores - 08/10/18 13:00> <Luli Roberto - Last Filed: 08/10/18 10:38> (6) Hypertension Qualifiers: Hypertension type: unspecified Qualified Code(s): I10 - Essential (primary) hypertension <Cristobal Flores - Last Filed: 08/10/18 13:00> (6) Hypertension Qualifiers: Hypertension type: unspecified Qualified Code(s): I10 - Essential (primary) hypertension <Luli Roberto - Last Filed: 08/10/18 10:38> (6) Hypertension Qualifiers: Hypertension type: unspecified Qualified Code(s): I10 - Essential (primary) hypertension <Cristobal Flores - Last Filed: 08/10/18 13:00> (6) Hypertension Qualifiers: Hypertension type: unspecified Qualified Code(s): I10 - Essential (primary) hypertension
--- NOTE | 2018-08-10 10:39 | P.DS ---
Date of admission: 08/08/18 13:53 Primary care physician: No Primary Care Physician Brief History from admission: HPI: 47 year old female presents with chest pain. Initially the chest pain started on Thursday in the morning. She had a seizure that morning (unwitnessed). She has an aura before it happens ( seeing halos). She then woke up and had chest pain located on her sternum, felt like something heavy was sitting on her chest. She had associated left arm numbness and Left jaw pain (lock jaw). The pain lasted for 45 minutes, she got up and took her metoprolol, Keppra and aspirin and then the pain went away. Throughout the day on Thursday, every time she tried to do activates such as vacuuming the pain would return, so she rested on Thursday. Her sister came in Thursday afternoon and she said she looked pale and then took her to the emergency department for the chest pain and back pain. Was evaluated on Thursday in the ED ,had a seizure in the emergency waiting room ( she believes it lasted for 15 minutes). Admitted for ACS workup. Left AMA Thursday because there was nothing on the chart to help with her chest pain and no food available. They gave her a nitroglycerin patch + lorazepam and the chest pain had subsided so she left AMA. When she woke up this morning she continued to feel the CP, same area, same radiation. Rate the pain 6/10. Non pleuritic. No recent trauma to the area. Since her seizure diagnosis she has had one seizure in [place] and four seizures since she came to [facility] on August 02. Has been taking her seizure medications daily. The only two things that she has done differently was: did not take her clonazepam (usually take it 5 times a week). She also consumed alcohol (a glass a wine) during her trip and she doesn't drink before. Not sleep deprived. Stressed that her daughter and are still in [place]. Denies any fever, Shortness of breath, No coughing, No abdominal pain. No pain with urination. Increase in Urinary frequency. She also complains of Left sided flank pain that started on the and increased on the . It radiates to her waist downward. 9/10 in severity. Morphine given by the pipe installer in [place] helped. Motrin and Flexeril helped. Keeping well hydrated. Abnormal Vaginal Discharge: white and creamy that started yesterday. PMH: Seizures (1st time in January,went into Cardiac Arrest and had to be resuscitated), Kidney Infection, abnormal stress test in [place] in March. HBP. Anxiety. Uterine Fibroid. Hypoglycemia, Hypothyroidism. PSH: R elbow cyst removal as a kid. MEDs: Keppra, Metoprolol, Lopressor, Nitroglycerin. Clonazepam. Flexeril. PFH: HBP in family. Mom had diabetes. Fibroids. Dad of Liver cancer. SH: Lives in [place]. No other travel. Smokes 1/2 ppd for 5 years. Denies any alcohol use or drug use. Sexually active with . No history of STDs. Menstrual cycles regular. Abnormal vaginal discharge. Pain with sexual intercourse, some vaginal bleeding afterwards. ROS: Noted in HPI. DS: Diagnosis - Discharge Diagnosis (1) Chest pain Status: Acute (2) Seizure disorder Status: Acute (3) Vaginal discharge Status: Acute (4) Left flank pain Status: Acute (5) Marijuana abuse Status: Acute (6) Hypertension Status: Acute (7) Abnormal stress test Status: Acute (8) Tobacco abuse Status: Acute (9) Tinea versicolor Status: Acute (10) DVT prophylaxis Status: Acute (11) Nutrition, metabolism, and development symptoms Status: Acute DS: Medications - Discharge Medications Prescriptions: atorvastatin 20 mg PO DAILY #30 tab clonazepam 1 mg PO HS #30 tab levetiracetam [Keppra] 1,000 mg PO BID #120 tab varenicline [Chantix Starting Month Box] 1 box PO PER PK DIR #1 ea DS: Summary Hospital Course: 47 year-old female with seizures on clonazepam and Keppra presented to the emergency room with chest pain. Patient lives in [place] and was visiting her family for Thanksgiving. Was worked up for ACS and then left AMA after receiving a nitroglycerin patch. She returned the next day complaining of left- sided chest pain that radiated down her left arm. Troponin were negative, EKG normal. CBC and CMP within normal limits. Cardiology was consulted. Neurology recommended increasing her Keppra dose from 500 twice daily 1000 twice daily, and to continue clonazepam 1 mg daily. She also complained of left lower quadrant flank pain and some abnormal vaginal discharge. Chlamydia, gonorrhea and HIV were negative. Patient was given 1 g of metronidazole to cover for bacterial vaginosis or trichomonas. Patient went for cardiac catheterization, results revealed normal systolic function, ejection fraction of 60%. Cardiology recommended outpatient management of coronary artery disease. Her chest pain improved after being started on the Coreg. Her left sided flank pain had improved with Toradol. Patient was educated on the importance of smoking cessation, Chantix was prescribed. Patient was discharged to home on atorvastatin 20 mg daily, Coreg 3.125 p.o. twice daily, Clonazepam 1 mg daily, Keppra 1000 mg p.o. twice daily, Chantix starting pack. Ketoconazole cream was prescribed for tinea versicolor. Home dose of metoprolol was discontinued. Patient to follow-up outpatient for coronary artery disease and for pelvic exam/Pap smear. Patient voiced understanding. - Time Spent with Patient Total time spent providing and/or coordinating discharge services: Less than 30 minutes - Quality: VTE Deep Vein Thrombosis/Pulmonary Embolism Present on Admission: No Exam Vital signs: Vital Signs 08/09/18 12:00 08/09/18 16:00 08/09/18 19:38 Temperature 98.4 F 97.3 F L Pulse Rate 70 63 68 Respiratory Rate 18 18 Blood Pressure 119/56 L 113/66 Pulse Oximetry 97 99 08/09/18 20:00 08/09/18 21:41 08/10/18 00:00 Temperature 98 F 97.4 F L Pulse Rate 78 71 Respiratory Rate 18 9 L 18 Blood Pressure 140/80 132/68 Pulse Oximetry 97 97 08/10/18 04:00 08/10/18 08:00 08/10/18 09:00 Temperature 97.7 F 97.8 F Pulse Rate 88 66 64 Respiratory Rate 18 16 Blood Pressure 114/69 101/71 Pulse Oximetry 95 99 Intake & Output 08/09/18 08/10/18 08/10/18 18:59 06:59 18:59 Intake Total 240 / 240 Balance 240 / 240 Weight 87.7 kg Intake: Oral 240 / 240 Other: # Voids 2 Narrative: GENERAL: Appearing female, lying comfortably in bed, no acute distress. SKIN: Warm and dry. Multiple white circular patches appreciated in the lower and upper extremity bilaterally. HEAD: Atraumatic. Normocephalic. CARDIOVASCULAR: Regular rate and rhythm. No murmurs appreciated. 2+ peripheral pulses appreciated the upper and lower extremities bilaterally. RESPIRATORY: No accessory muscle use. Clear to auscultation. Breath sounds equal bilaterally. GASTROINTESTINAL: Abdomen soft, non-tender, nondistended. Tenderness to palpation of the left suprapubic region. MUSCULOSKELETAL: Extremities without clubbing, cyanosis, or edema. No obvious deformities. NEUROLOGICAL: Awake and alert. No obvious cranial nerve deficits. Motor grossly within normal limits. PSYCHIATRIC: Appropriate mood and affect; insight and judgment normal. Results Procedures completed during hospitalization: Cardiac Cath Labs on day of discharge: Labs from last 24 hours 08/10/18 08/10/18 08/09/18 04:30 04:30 08:25 WBC 5.8 RBC 3.50 L Hgb 11.3 L Hct 33.5 L MCV 95.7 MCH 32.2 MCHC 33.6 RDW 12.7 Plt Count 182 MPV 10.3 Neut % (Auto) 45.1 Lymph % (Auto) 44.8 H Oliver % (Auto) 6.8 Eos % (Auto) 2.7 Baso % (Auto) 0.6 Neut # (Auto) 2.6 Lymph # (Auto) 2.6 Oliver # (Auto) 0.4 Eos # (Auto) 0.2 Baso # (Auto) 0.0 WBC Differential . Differential Comment Auto diff final Sodium 141 Potassium 3.5 Chloride 109 H Carbon Dioxide 25.4 Anion Gap 7 BUN 11 Creatinine 0.65 Estimated GFR Greater than 89 Random Glucose 82 Calcium 8.4 L Total Bilirubin 0.3 AST 9 L ALT 13 Alkaline Phosphatase 40 L Total Protein 5.6 L Albumin 2.8 L Beta HCG, Qual 1.6 - Impressions ITS Impressions Chest X-Ray 08/08/18 11:28 CONCLUSION: No acute cardiopulmonary process. Discharge Plan - Discharge Disposition Patient Disposition: Discharge Home - Discharge Condition Condition: Stable - Discharge Order Discharge Orders: Discharge Order (Routine); Ordered 08/10/18 Ordered By: Rodney Tay - Physicians Team Primary Care Provider: Primary Care Tobii,Beatriz Attending Provider: Cristobal Flores Other Providers: Wilber Hendrix MD
== END 2018-08-10 12:38 | disposition home or self-care (01) ==
LOC: NEPC 11:18 → NEDA 11:18 → NEPGCP 14:41 → N04 14:59
PROVIDERS: ADMIT Family Medicine; ATTEND Family Medicine